=== PATIENT | female | born 1955 | race Caucasian/White ===

== ENCOUNTER 2020-03-28 13:58 | Outpatient (REF) | payer BC, SELFPAY | END 2020-03-28 13:59 | disposition home or self-care (01) | LOC: HO.LNP 13:58 | PROVIDERS: Visit Provider Hospitalist | DX: Z20.828 Contact with and (suspected) exposure to other viral communicable diseases (principal); R11.2 Nausea with vomiting, unspecified | CPT/HCPCS: 87635 ==

== ENCOUNTER 2020-05-12 17:07 | Emergency (ER) | payer BC, SELFPAY ==
[2020-05-12 17:21] VITALS: BP 172/78; PULSE 88; RESP 20; TEMP 37.1; O2SAT 96; BMI 33.0
--- NOTE | 2020-05-12 20:13 | XR_ITS ---
EXAMINATION: XR CHEST CLINICAL INFORMATION: Chest pain COMPARISON: CT from 06/17/2019. Radiograph 01/24/2019. TECHNIQUE: Frontal view of the chest was obtained. FINDINGS: The lungs are well expanded. Minimal bibasilar atelectasis. No consolidation. No edema or effusion. No pneumothorax. The cardiomediastinal silhouette is normal in size with a calcified aorta. XR/XR chest 1V IMPRESSION: No acute pulmonary finding.
--- NOTE | 2020-05-12 20:13 | ECG_ITS ---
Test Reason : CHEST TIGHTNESS Blood Pressure : / mmHG Vent. Rate : 092 BPM Atrial Rate : 092 BPM P-R Int : 166 ms QRS Dur : 074 ms QT Int : 374 ms P-R-T Axes : 103 007 016 degrees QTc Int : 462 ms Normal sinus rhythm Normal ECG No previous ECGs available Referred By: Ray Jalloh Electronically Signed By:GAB DANIELS MD
[2020-05-12 20:51] LABS: MANUAL DIFF FLAG NO
[2020-05-12 20:55] LABS: Basophils Absolute Auto 0.1 X10*3/uL (0.0-0.2); Basophils Percent Auto 0.4 % (0-2); Eosinophils Absolute Auto 0.3 X10*3/uL (0.0-0.4); Eosinophils Percent Auto 2.1 % (0-4); Hematocrit 48.2 % (37-47); Hemoglobin 16.3 g/dl (12.0-16.0); Imm Gran Abs Auto 0.08 X10*3/uL (0.00-0.03); Imm Gran Pct Auto 0.6 % (0.0-0.4); Lymphocytes Percent Auto 21.6 % (20-40); Mean Corpuscular HGB Conc 33.8 g/dl (31.0-35.0); Mean Corpuscular Hemoglobin 31.5 pg (27.0-33.0); Mean Corpuscular Volume 93.2 fL (80-98); Mean Platelet Volume 11.1 fL (9.4-12.3); Monocytes Absolute Auto 0.8 X10*3/uL (0.1-1.2); Monocytes Percent Auto 5.4 % (2-11); Neutrophils Absolute Auto 9.7 X10*3/uL (2.0-8.3); Neutrophils Percent Auto 69.9 % (45-73); Platelet Count 236 X10*3/uL (160-400); Red Blood Count 5.17 X10*6/uL (4.20-5.50); Red Cell Distribution Width 13.9 % (11.0-16.0); White Blood Count 13.9 X10*3/uL (4.8-10.8)
--- NOTE | 2020-05-12 21:07 | ED_ITS ---
HPI - Chest Pain General Chief Complaint: General Medical Stated Complaint: chest pressure Time Seen by Provider: 05/12/20 20:12 Source: patient Mode of arrival: ambulatory Limitations: no limitations History of Present Illness HPI narrative: Patient complaining of right-sided chest pain when she takes a deep breath mostly localized in the front part no cough no shortness of breath no left-sided chest pain no radiation of pain no history of any injury. Pain is going on for last few days get worse on palpation and taking a deep breath MD complaint: chest pain Onset (ago): day(s) Timing of current episode: episodic Prior episodes: No Onset: during rest Pain location: right chest Severity: mild Quality: sharp Exacerbating factors: inspiration and movement Related Data Home Medications Medication Instructions Recorded Confirmed albuterol sulfate 90 mcg/actuation 2 puff INHALATION Q6H PRN 03/28/20 04/08/20 aerosol inhaler hydroxyzine HCl 25 mg tablet [id number] mg PO BEDTIME PRN 03/28/20 04/08/20 ibuprofen 600 mg tablet 600 mg PO TID PRN 04/20/20 lorazepam 1 mg tablet 1 mg PO DAILY PRN 04/20/20 lorazepam 1 mg tablet 1 mg PO DAILY PRN 04/20/20 quetiapine 25 mg tablet 25 mg PO BEDTIME 04/20/20 Previous Rx's Medication Instructions Recorded ondansetron HCl 8 mg tablet 8 mg PO Q8H PRN #20 tab 03/28/20 doxycycline hyclate 100 mg tablet 100 mg PO BID #14 tab 04/08/20 ibuprofen 600 mg tablet 600 mg PO TID PRN 15 Days #45 tab 04/20/20 lorazepam 1 mg tablet 1 mg PO DAILY PRN 30 Days #30 tab 04/20/20 quetiapine 25 mg tablet 25 mg PO BEDTIME 30 Days #30 tab 04/20/20 atorvastatin 40 mg tablet 40 mg PO DAILY #30 tab 05/27/20 Allergies Allergy/AdvReac Type Severity Reaction Status Date / Time shellfish derived Allergy Severe ANAPHYLAXIS Unverified 04/08/20 16:39 [SHELLFISH DERIVED] cyclobenzaprine Allergy Intermediate LETHARGY Unverified 04/08/20 16:39 [From FLEXERIL] bupropion [From Wellbutrin] Allergy Mild HIVES Unverified 04/08/20 16:39 amoxicillin [Augmentin] Allergy Unknown unknown Verified 04/08/20 16:39 clavulanic acid [Augmentin] Allergy Unknown unknown Verified 04/08/20 16:39 quetiapine [Seroquel] Allergy Unknown hypoglycemi Verified 04/08/20 16:39 a erythromycin base AdvReac Mild VOMITING Unverified 04/08/20 16:39 [Erythromycin Base] pantoprazole [From Protonix] AdvReac Mild TIGHTING Unverified 04/08/20 16:39 OF MUSCLES Augmentin Allergy Unknown GI side Uncoded 04/08/20 16:39 effect Seroquel Allergy Unknown hypoglycemi Uncoded 04/08/20 16:39 a Wellbutrin Allergy Unknown unknown Uncoded 04/08/20 16:39 From Augmentin AdvReac Mild VOMITING Uncoded 04/08/20 16:39 Review of Systems Review of Systems: Constitutional : No Weight loss, No Fever, No Chills ENT/Mouth : No sore throat, No Rhinorrhea Eyes: No Eye Pain, No Swelling Cardiovascular : + Chest Pain, no palpitations Respiratory : No Cough, No Sputum, no shortness of breath Gastrointestinal : no Nausea, No Vomiting, No Diarrhea, No abdominal Pain, no black stools Genitourinary : No Dysuria, No Urinary Frequency Musculoskeletal : No joint pain, No Myalgias, No Joint Swelling Skin : No Skin Lesions, No rash Neuro : No Weakness, No Numbness, No Dizziness, No Headache Psych : No Anxiety/Panic, No Depression Heme/Lymph: No Bruising, No Lymphadenopathy Endocrine : No Polyuria, No Polydipsia All other systems reviewed and are negative Physical Exam Vital Signs: Vital Signs: Last Vital Signs Temp 98.2 F 05/12/20 21:32 Pulse 94 05/12/20 21:32 Resp 18 05/12/20 21:32 BP 147/7 H 05/12/20 21:32 Pulse Ox 98 05/12/20 21:32 Body Mass Index 33.0 Appearance: Alert. Oriented X3. No acute distress. Eyes: Pupils equal, round and reactive to light. ENT: Pharynx normal. Neck: Normal inspection. Neck supple. CVS: Normal heart rate and rhythm. Pulses normal. Right chest wall tenderness in 2nd intercostal space++ Respiratory: No respiratory distress. Breath sounds normal. Abdomen: Soft and nontender. Bowel sounds are present, no mass palpable, no CVA tenderness Skin: Skin warm and dry. Normal skin color. Normal skin turgor. Extremities: No lower extremity edema. Neuro: Oriented X 3. No motor deficit. No sensory deficit. MDM - Chest Pain MDM Narrative Medical decision making narrative: Patient has atypical chest pain on the right side pain elicited on palpation EKGs normal high sensitive troponin is also negative pain is going on for few days patient advised to follow with PCP and take anti-inflammatory pain medication Medical Records Data Attestation: I reviewed the patient's medical records. Lab Data Attestation: I reviewed the patient's lab results. Result diagrams: 05/12/20 20:45 05/12/20 20:45 Labs: Lab Results 05/12/20 05/12/20 05/12/20 Range/Units 20:45 20:45 20:45 WBC 13.9 H (4.8-10.8) X10*3/uL RBC 5.17 (4.20-5.50) X10*6/uL Hgb 16.3 H (12.0-16.0) g/dl Hct 48.2 H (37-47) % MCV 93.2 (80-98) fL MCH 31.5 (27.0-33.0) pg MCHC 33.8 (31.0-35.0) g/dl RDW 13.9 (11.0-16.0) % Plt Count 236 (160-400) X10*3/uL MPV 11.1 (9.4-12.3) fL Immature Gran % (Auto) 0.6 H (0.0-0.4) % Neut % (Auto) 69.9 (45-73) % Lymph % (Auto) 21.6 (20-40) % [place] % (Auto) 5.4 (2-11) % Eos % (Auto) 2.1 (0-4) % Baso % (Auto) 0.4 (0-2) % Lymph # (Auto) 3.0 (1.2-4.9) X10*3/uL [place] # (Auto) 0.8 (0.1-1.2) X10*3/uL Eos # (Auto) 0.3 (0.0-0.4) X10*3/uL Baso # (Auto) 0.1 (0.0-0.2) X10*3/uL Abs Immat Gran (auto) 0.08 H (0.00-0.03) X10*3/uL Absolute Neuts (auto) 9.7 H (2.0-8.3) X10*3/uL Absolute Nucleated RBC 0.000 (0.0-0.012) X10*3/uL Nucleated RBC % (auto) 0.0 (0.0-0.2) /100WBC Hold Blue Top SEE NOTE Sodium 139 (135-145) mmol/L Potassium 4.3 (3.3-5.1) mmol/l Chloride 106 (96-108) mmol/L Carbon Dioxide 23 (22-29) mmol/L Anion Gap 14 (12-20) BUN 24 H (9-16) mg/dL Creatinine 0.77 (0.5-1.4) mg/dL Estim Creat Clear Calc 69.4 Estimated GFR > 60 Random Glucose 84 (60-115) mg/dL Calcium 9.7 (8.4-10.2) mg/dL Troponin I High Sens (<3.5-17.0) ng/L 05/12/20 Range/Units 20:45 WBC (4.8-10.8) X10*3/uL RBC (4.20-5.50) X10*6/uL Hgb (12.0-16.0) g/dl Hct (37-47) % MCV (80-98) fL MCH (27.0-33.0) pg MCHC (31.0-35.0) g/dl RDW (11.0-16.0) % Plt Count (160-400) X10*3/uL MPV (9.4-12.3) fL Immature Gran % (Auto) (0.0-0.4) % Neut % (Auto) (45-73) % Lymph % (Auto) (20-40) % [place] % (Auto) (2-11) % Eos % (Auto) (0-4) % Baso % (Auto) (0-2) % Lymph # (Auto) (1.2-4.9) X10*3/uL [place] # (Auto) (0.1-1.2) X10*3/uL Eos # (Auto) (0.0-0.4) X10*3/uL Baso # (Auto) (0.0-0.2) X10*3/uL Abs Immat Gran (auto) (0.00-0.03) X10*3/uL Absolute Neuts (auto) (2.0-8.3) X10*3/uL Absolute Nucleated RBC (0.0-0.012) X10*3/uL Nucleated RBC % (auto) (0.0-0.2) /100WBC Hold Blue Top Sodium (135-145) mmol/L Potassium (3.3-5.1) mmol/l Chloride (96-108) mmol/L Carbon Dioxide (22-29) mmol/L Anion Gap (12-20) BUN (9-16) mg/dL Creatinine (0.5-1.4) mg/dL Estim Creat Clear Calc Estimated GFR Random Glucose (60-115) mg/dL Calcium (8.4-10.2) mg/dL Troponin I High Sens < 3.5 (<3.5-17.0) ng/L ECG Data ECG #1: Attestation: I personally reviewed and interpreted this ECG as follows: Interpretation: Normal sinus rhythm heart rate 92 normal axis normal intervals no acute ST wave changes impression normal EKG Discharge Plan Discharge Clinical Impression: Acute costochondritis Patient Disposition: Home, Self-Care Instructions: Costochondritis (ED) Additional Instructions: Continue to take ibuprofen as advised. Follow-up with primary care doctor if not better Prescriptions: No Action lorazepam 1 mg tablet 1 mg PO DAILY PRNRF: 0 quetiapine 25 mg tablet 25 mg PO BEDTIME RF: 0 ibuprofen 600 mg tablet 600 mg PO TID PRN (Reason: pain) RF: 0 ibuprofen 600 mg tablet 600 mg PO TID PRN (Reason: pain) 15 Days Qty: 45 RF: 2 quetiapine 25 mg tablet 25 mg PO BEDTIME 30 Days Qty: 30 RF: 1 lorazepam 1 mg tablet 1 mg PO DAILY PRN (Reason: anxiety) 30 Days Qty: 30 RF: 1 lorazepam 1 mg tablet 1 mg PO DAILY PRNRF: 0 atorvastatin 40 mg tablet 40 mg PO DAILY Qty: 30 RF: 4 hydroxyzine HCl 25 mg tablet [id number] mg PO BEDTIME PRNRF: 0 albuterol sulfate 90 mcg/actuation HFA aerosol inhaler 2 puff inhalation Q6H PRNRF: 0 ondansetron HCl 8 mg tablet 8 mg PO Q8H PRN (Reason: nausea and vomiting) Qty: 20 RF: 0 doxycycline hyclate 100 mg tablet 100 mg PO BID Qty: 14 RF: 0 Interventions: ED Discharge Assessment Last Done: 05/12/20 22:59 Discharge Date/Time: 05/12/20 23:00
[2020-05-12 21:12] LABS: Anion Gap 14 (12-20); Blood Urea Nitrogen 24 mg/dL (9-16); Calcium 9.7 mg/dL (8.4-10.2); Carbon Dioxide 23 mmol/L (22-29); Chloride 106 mmol/L (96-108); Creatinine Clr Calc Pharmacy 69.4; Estimated Glomerular Filt Rate > 60; Glucose Random 84 mg/dL (60-115); Potassium 4.3 mmol/l (3.3-5.1); Sodium 139 mmol/L (135-145)
[2020-05-12 21:18] LABS: Troponin-I High Sensitivity < 3.5 ng/L (<3.5-17.0)
[2020-05-12 21:32] VITALS: BP 147/7; PULSE 94; RESP 18; TEMP 36.8; O2SAT 98
[2020-05-12] MEDS: Ketorolac Tromethamine 30 MG/ML VIAL IVPUSH (22:10)
== END 2020-05-12 23:00 | disposition home or self-care (01) ==
PROVIDERS: Emergency Provider Internal Medicine; PCP Physician Assistant
DX: M94.0 Chondrocostal junction syndrome [Tietze] (principal)
CPT/HCPCS: 36415; 71045; 80048; 84484; 85025; 93005; 96374; 99284; J1885

== ENCOUNTER 2020-06-14 14:23 | Outpatient (REF) | payer BC, SELFPAY ==
--- NOTE | 2020-06-14 14:30 | MM_ITS ---
EXAMINATION: MM DIAGNOSTIC DIGITAL BREAST TOMOSYNTHESIS, BILATERAL US DIAGNOSTIC ULTRASOUND BREAST, RIGHT CLINICAL INFORMATION: Areas of palpable concern noted by patient medial and lateral breast and chest wall, palpable fullness and intermittent pain. The lifetime risk of breast cancer based on the Tyrer-Cuzick Model is 3%. COMPARISON: Mammography: 02/21/2019, 07/27/2015, 05/16/2013 TECHNIQUE: Digital breast tomosynthesis is performed in both the craniocaudal and mediolateral oblique views along with computer-aided detection (CAD). Synthesized 2D images are generated from the tomosynthesis. Ultrasound right breast is targeted to the areas of patient concern. Grayscale imaging and color Doppler are performed without and with harmonics. Patient is able to point to the areas of concern at time of imaging. FINDINGS: There are scattered areas of fibroglandular density (ACR BI-RADS breast composition Category b). Parenchymal pattern is similar to prior studies. There is no developing density or interval mass or architectural abnormality. There are scattered stable parenchymal asymmetries and small nodularity on tomography and similar to prior studies. No abnormal calcifications. The axilla and skin contours are unremarkable. There is no skin thickening or coarsening of the Kenneth's ligaments. Targeted right breast ultrasound shows no cystic or solid mass, architectural abnormality, or focal duct ectasia. No skin thickening or edema tracking in soft tissue planes. Low right axillary tail nodes show normal kelly architecture and color flow. Results are discussed with the patient at time of visit. MM/MM tomosynthesis diagnostic BI IMPRESSION: No mammographic evidence of malignancy or inflammatory changes. Unremarkable targeted right breast ultrasound. ASSESSMENT: BI-RADS 2: Benign RECOMMENDATION: 1. Patient should be managed based on the clinical impression. If clinically indicated, further evaluation may be considered with surgical consult. Decision to proceed with biopsy should be based on clinical grounds and degree of clinical concern. 2. Otherwise, routine annual screening mammography. This patient's information was entered into a reminder system with a target due date for their next mammogram.
== END 2020-06-14 14:24 | disposition home or self-care (01) ==
LOC: HO.MAMMO 14:23
PROVIDERS: PCP Physician Assistant; Visit Provider Physician Assistant
DX: N63.10 Unspecified lump in the right breast, unspecified quadrant (principal); N64.4 Mastodynia
CPT/HCPCS: 76642; 77062; 77066

== ENCOUNTER 2020-06-21 16:14 | Outpatient (REF) | payer BC, SELFPAY ==
--- NOTE | 2020-06-21 16:17 | CT_ITS ---
EXAMINATION: CT CHEST SCREENING CLINICAL INFORMATION: Solitary pulmonary nodule. COMPARISON: 06/17/2019 TECHNIQUE: Multidetector volumetric CT imaging of the chest is performed without contrast using low dose technique. Additional 2D coronal and sagittal reformatted images and axial 3D maximum intensity projection (MIP) images are generated on the CT workstation. This CT examination was performed using dose optimization techniques as appropriate, variously including the following: *Automated exposure control *Adjustment of mA and/or kV according to patient size (this includes techniques or standardized protocols for targeted exams where dose is matched to indication/reason for exam; i.e. extremities or head) *Use of iterative reconstruction technique DLP: 55 mGy-cm. FINDINGS: LUNGS: Central airways are patent. There are are regions of discoid scarring or atelectasis within the right middle lobe and lingula. No confluent parenchymal disease is appreciated. No significant bronchial wall thickening. No bronchiectasis. There are a few scattered sub-4 mm densities present. MEDIASTINUM: Heart normal size. Coronary artery calcifications seen. No pericardial effusion. No thoracic aortic aneurysm. No mediastinal or hilar lymphadenopathy. PLEURA: There is no pleural effusion. No pleural mass or thickening. AXILLA: No lymphadenopathy. UPPER ABDOMEN: Unremarkable. OSSEOUS STRUCTURES: No suspicious destructive bony lesion. CT/CT lung screening IMPRESSION: No 4 mm or greater in dimension lung nodules appreciated. ASSESSMENT: Lung-RADS category 1: Negative RECOMMENDATION: Routine annual low-dose CT screening in 12 months.
== END 2020-06-21 16:15 | disposition home or self-care (01) ==
LOC: HO.RESP 16:14
PROVIDERS: PCP Physician Assistant; Visit Provider Physician Assistant Medical
DX: Z12.2 Encounter for screening for malignant neoplasm of respiratory organs (principal); F17.210 Nicotine dependence, cigarettes, uncomplicated
CPT/HCPCS: 71271

== ENCOUNTER 2020-10-07 10:30 | Emergency (ER) | payer BC, SELFPAY ==
--- NOTE | ~2020-10-07 | XR_ITS ---
EXAMINATION: XR CHEST CLINICAL INFORMATION: Dyspnea COMPARISON: Previous chest x-ray May [address] June 2020 TECHNIQUE: Frontal view of the chest was obtained. FINDINGS: The cardiac and mediastinal contours are stable. Is minimal bilateral linear scarring or subsegmental atelectasis similar to previous exam. The lungs are otherwise clear. There is no pleural effusion or pneumothorax. Bony structures are unremarkable. XR/XR chest 1V IMPRESSION: No evidence for acute disease in the chest.
[2020-10-07 10:46] VITALS: BP 130/90; BP 164/94; PULSE 112; PULSE 113; RESP 22; TEMP 36.9; O2SAT 93; O2SAT 94; BMI 33.2
[2020-10-07 10:52] VITALS: BP 164/94; PULSE 112; RESP 22; TEMP 36.9; O2SAT 94
--- NOTE | 2020-10-07 11:06 | ECG_ITS ---
Test Reason : DYSPNEA Blood Pressure : / mmHG Vent. Rate : 104 BPM Atrial Rate : 104 BPM P-R Int : 168 ms QRS Dur : 072 ms QT Int : 360 ms P-R-T Axes : 019 021 011 degrees QTc Int : 473 ms Sinus tachycardia Otherwise normal ECG When compared with ECG of 12-MAY-2020 17:54, No significant change was found Referred By: Siri Rowan Electronically Signed By:GAB DANIELS MD
[2020-10-07 11:22] LABS: MANUAL DIFF FLAG NO
[2020-10-07 11:25] LABS: Basophils Percent Auto 0.3 % (0-2); Eosinophils Absolute Auto 0.3 X10*3/uL (0.0-0.4); Hematocrit 48.1 % (37-47); Hemoglobin 15.9 g/dl (12.0-16.0); Imm Gran Abs Auto 0.07 X10*3/uL (0.00-0.03); Imm Gran Pct Auto 0.5 % (0.0-0.4); Lymphocytes Absolute Auto 2.5 X10*3/uL (1.2-4.9); Lymphocytes Percent Auto 17.7 % (20-40); Mean Corpuscular HGB Conc 33.1 g/dl (31.0-35.0); Mean Corpuscular Hemoglobin 30.8 pg (27.0-33.0); Mean Corpuscular Volume 93.2 fL (80-98); Mean Platelet Volume 10.5 fL (9.4-12.3); Monocytes Absolute Auto 0.8 X10*3/uL (0.1-1.2); Monocytes Percent Auto 5.6 % (2-11); Neutrophils Absolute Auto 10.4 X10*3/uL (2.0-8.3); Neutrophils Percent Auto 73.9 % (45-73); Platelet Count 250 X10*3/uL (160-400); Red Blood Count 5.16 X10*6/uL (4.20-5.50); Red Cell Distribution Width 13.2 % (11.0-16.0)
[2020-10-07 11:51] LABS: Anion Gap 15 (12-20); Blood Urea Nitrogen 19 mg/dL (9-16); Calcium 9.6 mg/dL (8.4-10.2); Carbon Dioxide 20 mmol/L (22-29); Chloride 105 mmol/L (96-108); Creatinine Clr Calc Pharmacy 73.4; Estimated Glomerular Filt Rate > 60; Glucose Random 271 mg/dL (60-115); Potassium 4.1 mmol/L (3.3-5.1); Sodium 136 mmol/L (135-145)
[2020-10-07 11:59] LABS: B Type Natriuretic Peptide 17 pg/mL (<100); Troponin-I High Sensitivity < 3.5 ng/L (<3.5-17.0)
[2020-10-07 12:08] LABS: INTERNATIONAL NORM RATIO 0.9 (0.9-1.1); Prothrombin Time 11.1 SEC (10.8-13.0)
[2020-10-07 12:11] LABS: D Dimer < 200 NG/ML; Partial Thromboplastin Time 34.6 SEC (24.1-38.0)
[2020-10-07 12:51] VITALS: BP 136/76; PULSE 98; RESP 17; O2SAT 97
--- NOTE | 2020-10-07 13:27 | ED_ITS ---
HPI - SOB/Dyspnea General Chief Complaint: Dyspnea Stated Complaint: sob, n/v Time Seen by Provider: 10/07/20 10:42 Source: patient Mode of arrival: ambulatory Limitations: no limitations History of Present Illness HPI Narrative: 65-year-old female with a past medical history of hyperlipidemia, COPD, right middle lobe pulmonary nodule, insomnia and anxiety disorder who is a daily smoker presenting to the ED with complaints of sudden onset of shortness of breath when she was going up the stairs to work she also developed some diaphoresis. She reports that she rested in her symptoms resolved then she had some breakfast and felt nauseated and vomited once. Therefore at that time EMS was called from her job and they gave her 324 mg of aspirin she reports her symptoms are already resolved at that point and brought here to the emergency department. Patient reports that she wants to leave at this time. She denies any drug usage. Denies any other symptoms complaints or concerns at this time. I was able to convince her to get some blood work, EKG and a chest x-ray. MD elicited complaint: shortness of breath Pertinent past history: COPD Onset (ago): hour(s) (Started at 07:00 this morning prior to arrival) Context: occurred during exertion Timing: now resolved Severity: mild Exacerbating factors: nothing Relieving factors: nothing Known history of: COPD Associated symptoms: palpitations Treatment prior to arrival: other (324 mg of aspirin) Related Data Home oxygen amount: none Previous Rx's Medication Instructions Recorded quetiapine 25 mg tablet 25 mg PO BEDTIME 30 Days #30 tab 04/20/20 albuterol sulfate 90 mcg/actuation 2 puff INHALATION Q6H PRN 30 Days 06/13/20 aerosol inhaler #8.5 g fluticasone 55 mcg-salmeterol 14 1 inh INHALATION BID 30 Days #1 ea 06/23/20 mcg/actuation breath activated powder quetiapine 100 mg tablet 100 mg PO BEDTIME 30 Days #30 tab 07/31/20 ibuprofen 600 mg tablet 600 mg PO TID PRN #45 tab 08/16/20 atorvastatin 40 mg tablet 40 mg PO DAILY #30 tab 08/28/20 ciprofloxacin 0.2 %-hydrocortisone 5 drp OTIC (EARS) BID 7 Days #10 ml 10/03/20 1 % ear drops,suspension lorazepam 1 mg tablet 1 mg PO DAILY PRN 30 Days #30 tab 10/03/20 Allergies Allergy/AdvReac Type Severity Reaction Status Date / Time shellfish derived Allergy Severe ANAPHYLAXIS Verified 10/03/20 17:08 [SHELLFISH DERIVED] cyclobenzaprine Allergy Intermediate LETHARGY Verified 10/03/20 17:08 [From FLEXERIL] bupropion [From Wellbutrin] Allergy Mild HIVES Verified 10/03/20 17:08 amoxicillin [Augmentin] Allergy Unknown unknown Verified 10/03/20 17:08 clavulanic acid [Augmentin] Allergy Unknown unknown Verified 10/03/20 17:08 quetiapine [Seroquel] Allergy Unknown hypoglycemi Verified 10/03/20 17:08 a erythromycin base AdvReac Mild VOMITING Verified 10/03/20 17:08 [Erythromycin Base] pantoprazole [From Protonix] AdvReac Mild TIGHTING Verified 10/03/20 17:08 OF MUSCLES Review of Systems Review of Systems: Constitutional : No Weight loss, No Fever, No Chills, No Night Sweats, No Fatigue, No Malaise ENT/Mouth : No Hearing loss, No Ear Pain, No Nasal Congestion, No Sinus Pain, No Hoarseness, No sore throat, No Rhinorrhea, No Swallowing Difficulty Eyes: No Eye Pain, No Swelling, No Redness, No Foreign Body, No Discharge, No Vision Changes Cardiovascular : No SOB, no Dyspnea on Exertion, No Orthopnea, No Edema, No extremity swelling, No Palpitations Respiratory : No Cough, No Sputum, No Wheezing, No Dyspnea Gastrointestinal : No Nausea, No Vomiting, No Diarrhea, No abdominal Pain, No Hematochezia, No Melena Genitourinary : No irregular bleeding, No Dysuria, No Urinary Frequency, No Hematuria, No Urinary Incontinence, No Urgency, No Flank Pain, No Urinary Flow Changes, No Hesitancy Musculoskeletal : No joint pain, No Myalgias, No Joint Swelling Skin : No Skin Lesions, No rash Neuro : No Weakness, No Numbness, No Paresthesias, No Loss of Consciousness, No Dizziness, No Headache Psych : No Anxiety/Panic, No Depression, No SI/HI/AH/VH Heme/Lymph: No Bruising, No Bleeding,No Lymphadenopathy Endocrine : No Polyuria, No Polydipsia, No Temperature Intolerance Yes all other systems are reviewed and are negative [facility] Past Medical History Attestation statement: The following information was validated with the patient. Medical History Left otitis externa Surgical History History of appendectomy History of left knee surgery History of nasal surgery History of surgery History of total abdominal hysterectomy and bilateral salpingo-oophorectomy Family History Family History Father Heart disease Mother Diabetes Daughter No problems noted. Son No problems noted. Social History Social History Alcohol intake: never Smoking Status: Former smoker Smoked in Last 30 Days: No Use of substances other than those prescribed or required for medical reasons: No Advance Directives: Yes Advance Directives Information Provided: Yes Advance Directives on File: No Physical Exam Vital Signs: Vital Signs: Last Vital Signs Temp 98.5 F 10/07/20 10:52 Pulse 98 10/07/20 12:51 Resp 17 10/07/20 12:51 BP 136/76 10/07/20 12:51 Pulse Ox 97 10/07/20 12:51 Body Mass Index 33.2 vital signs have been reviewed as normal and appeared to be correct. Blood pressure hypertensive at 164/94. Heart rate tachycardic at 112 Respiration rate tachypneic. Temperature normal. Oxygen saturation normal. Appearance: Alert. Oriented X3. No acute distress. Head: Normal external exam. Normocephalic. Eyes: PERRLA. EOMI. Conjunctiva and sclera normal. Eyelids normal. ENT: Pharynx normal. Uvula midline. Moist mucous membranes. No trismus noted. No drooling noted. No muffled voice noted. Neck: Normal inspection. Neck supple. FROM. No adenopathy. No meningeal signs. CVS: Normal heart rate and rhythm. Heart sound normal. No murmurs noted. Pulses normal throughout. Respiratory: No respiratory distress. Painless inspiration. Breath sounds normal. No wheezes/rales/rhonchi noted. Chest nontender. No accessory muscle usage noted or decreased air movement noted. Abdomen: Soft and nontender. Nondistended. No guarding. No rigidity. Bowel sounds normal in all 4 quadrants. No distention noted. No organomegaly noted. No visible injury noted. No rebound tenderness. Negative Rovsing sign. Negative obturator's sign. Negative psoas sign. Negative Davis sign. Back: No CVA tenderness. Full range of motion noted. Skin: Skin warm and dry. Normal skin color. Normal skin turgor. No bessie hes/lesions/lacerations noted. Extremities: No lower extremity edema noted. No calf tenderness noted. Extremities exhibit normal range of motion. Extremities nontender. Neuro: Oriented X 3. No motor deficit. No sensory deficit. Reflexes normal. Normal steady gait. Course Course Course Narrative: 65-year-old female with a past medical history of hyperlipidemia and COPD presenting to the ED after she had a sudden episode of shortness of breath with associated diaphoresis and nausea/vomiting that started approximately at 07:00 while she was at work. Denied any other symptoms complaints or concerns at this time. She was brought in by EMS and given 324 mg of aspirin that she reports did not provide any symptomatic relief because her symptoms are already resolved. She did not want to be here she wanted to leave against medical advice initially although I was able to convince her to get some blood work and a chest x-ray and an EKG. - patient has an elevated white blood cell count at 14,000. BUN 19. Random glucose 271 and patient denies a history of diabetes. Therefore I added an A1c level. Troponin was negative. - EKG was sinus tachycardia ventricular rate of 104 with normal [place] interval normal QRS duration normal QT/QTC interval. No acute ischemic changes are noted. - chest x-ray within normal limits no acute processes are noted. - I tried to convince the patient to have a repeat troponin even though her 1st troponin was negative due to her symptoms started at 07:00 and I wanted a troponin 6 hours after her symptoms started although patient adamantly refused and she is alert and oriented x3 she can make her own medical decisions I explained to her that she can stay paralyzed/have a heart attack or stroke or she can and she still wanted to leave against medical advice. I instructed her that she needs to follow up with her primary care provider regarding the symptoms she had today and her elevated glucose level for possible diabetes she understood this and reported that she will follow-up with her primary care provider as soon as he is back from paternity leave. Therefore at this time patient will be leaving against medical advice. MDM - SOB/Dyspnea Medical Records Attestation: I reviewed the patient's medical records. Lab Data Attestation: I reviewed the patient's lab results. Result diagrams: 10/07/20 11:17 10/07/20 11:17 Labs: Lab Results 10/07/20 10/07/20 10/07/20 Range/Units 11:17 11:17 11:17 WBC 14.0 H (4.8-10.8) X10*3/uL RBC 5.16 (4.20-5.50) X10*6/uL Hgb 15.9 (12.0-16.0) g/dl Hct 48.1 H (37-47) % MCV 93.2 (80-98) fL MCH 30.8 (27.0-33.0) pg MCHC 33.1 (31.0-35.0) g/dl RDW 13.2 (11.0-16.0) % Plt Count 250 (160-400) X10*3/uL MPV 10.5 (9.4-12.3) fL Immature Gran % (Auto) 0.5 H (0.0-0.4) % Neut % (Auto) 73.9 H (45-73) % Lymph % (Auto) 17.7 L (20-40) % [place] % (Auto) 5.6 (2-11) % Eos % (Auto) 2.0 (0-4) % Baso % (Auto) 0.3 (0-2) % Lymph # (Auto) 2.5 (1.2-4.9) X10*3/uL [place] # (Auto) 0.8 (0.1-1.2) X10*3/uL Eos # (Auto) 0.3 (0.0-0.4) X10*3/uL Baso # (Auto) 0.0 (0.0-0.2) X10*3/uL Abs Immat Gran (auto) 0.07 H (0.00-0.03) X10*3/uL Absolute Neuts (auto) 10.4 H (2.0-8.3) X10*3/uL Absolute Nucleated RBC 0.000 (0.0-0.012) X10*3/uL Nucleated RBC % (auto) 0.0 (0.0-0.2) /100WBC PT (10.8-13.0) SEC INR (0.9-1.1) APTT (24.1-38.0) SEC D-Dimer NG/ML Hold Blue Top SEE NOTE Sodium 136 (135-145) mmol/L Potassium 4.1 (3.3-5.1) mmol/L Chloride 105 (96-108) mmol/L Carbon Dioxide 20 L (22-29) mmol/L Anion Gap 15 (12-20) BUN 19 H (9-16) mg/dL Creatinine 0.73 (0.5-1.4) mg/dL Estim Creat Clear Calc 73.4 Estimated GFR > 60 Random Glucose 271 H D (60-115) mg/dL Calcium 9.6 (8.4-10.2) mg/dL Troponin I High Sens (<3.5-17.0) ng/L B-Natriuretic Peptide (<100) pg/mL 10/07/20 10/07/20 Range/Units 11:17 11:56 WBC (4.8-10.8) X10*3/uL RBC (4.20-5.50) X10*6/uL Hgb (12.0-16.0) g/dl Hct (37-47) % MCV (80-98) fL MCH (27.0-33.0) pg MCHC (31.0-35.0) g/dl RDW (11.0-16.0) % Plt Count (160-400) X10*3/uL MPV (9.4-12.3) fL Immature Gran % (Auto) (0.0-0.4) % Neut % (Auto) (45-73) % Lymph % (Auto) (20-40) % [place] % (Auto) (2-11) % Eos % (Auto) (0-4) % Baso % (Auto) (0-2) % Lymph # (Auto) (1.2-4.9) X10*3/uL [place] # (Auto) (0.1-1.2) X10*3/uL Eos # (Auto) (0.0-0.4) X10*3/uL Baso # (Auto) (0.0-0.2) X10*3/uL Abs Immat Gran (auto) (0.00-0.03) X10*3/uL Absolute Neuts (auto) (2.0-8.3) X10*3/uL Absolute Nucleated RBC (0.0-0.012) X10*3/uL Nucleated RBC % (auto) (0.0-0.2) /100WBC PT 11.1 (10.8-13.0) SEC INR 0.9 (0.9-1.1) APTT 34.6 (24.1-38.0) SEC D-Dimer < 200 NG/ML Hold Blue Top Sodium (135-145) mmol/L Potassium (3.3-5.1) mmol/L Chloride (96-108) mmol/L Carbon Dioxide (22-29) mmol/L Anion Gap (12-20) BUN (9-16) mg/dL Creatinine (0.5-1.4) mg/dL Estim Creat Clear Calc Estimated GFR Random Glucose (60-115) mg/dL Calcium (8.4-10.2) mg/dL Troponin I High Sens < 3.5 (<3.5-17.0) ng/L B-Natriuretic Peptide 17 (<100) pg/mL Imaging Data Chest x-ray: Attestation: I personally reviewed and interpreted this imaging study as follows: Radiologist's impression: FINDINGS: The cardiac and mediastinal contours are stable. Is minimal bilateral linear scarring or subsegmental atelectasis similar to previous exam. The lungs are otherwise clear. There is no pleural effusion or pneumothorax. Bony structures are unremarkable. XR/XR chest 1V IMPRESSION: No evidence for acute disease in the chest. ECG Data Attestation: I personally reviewed and interpreted this ECG as follows: ECG interpretation date: 10/07/20 ECG interpretation time: 11:24 Interpretation: Sinus tachycardia with ventricular rate of 104 with a normal [place] interval normal QRS duration normal QT/QTC interval. No acute ischemic changes are noted. Similar compared to prior EKG on 05/12/2020. Critical Care Time Critical Care Time Critical Care Time: Yes Total Critical Care Time: 60 Attestation: I personally attest to this time spent taking care of the patient Discharge Plan Discharge Clinical Impression: Shortness of breath, Acute hyperglycemia Patient Disposition: Left Against Medical Advice Instructions: Nondiabetic Hyperglycemia (ED), Diabetic Hyperglycemia (ED) Additional Instructions: You had an elevated glucose level today at 271. You could have diabetes although you are refusing any additional blood work. I also recommended a repeat troponin 6 hours after your symptoms started which would be at 01:30 and also refused therefore at this time I am recommending that you follow-up with her primary care provider as soon as possible and to return if any new or worsening symptoms I would love to do additional blood work on You although you refusing therefore follow-up with her primary care provider. Prescriptions: No Action quetiapine 25 mg tablet 25 mg PO BEDTIME 30 Days Qty: 30 RF: 1 fluticasone propion-salmeterol 55-14 mcg/actuation aerosol powdr breath activated 1 inh inhalation BID 30 Days Qty: 1 RF: 0 quetiapine 100 mg tablet 100 mg PO BEDTIME 30 Days Qty: 30 RF: 3 ibuprofen 600 mg tablet 600 mg PO TID PRN (Reason: for pain) Qty: 45 RF: 2 atorvastatin 40 mg tablet 40 mg PO DAILY Qty: 30 RF: 4 albuterol sulfate 90 mcg/actuation HFA aerosol inhaler 2 puff inhalation Q6H PRN (Reason: shortness of breath or wheezing) 30 Days Qty: 8.5 RF: 0 lorazepam 1 mg tablet 1 mg PO DAILY PRN (Reason: anxiety) 30 Days Qty: 30 RF: 0 Cipro HC 0.2-1 % drops,suspension 5 drp otic (ears) BID 7 Days Qty: 10 RF: 0 Referrals: Joni Sullivan PA-C [Primary Care Provider] - 2 days Stand Alone Forms: Work/School Release Interventions: ED Discharge Assessment Last Done: 10/07/20 13:40 Discharge Date/Time: 10/07/20 13:45 Print Language: Armenian
--- NOTE | 2020-10-07 13:44 | PC.NURSE ---
pt has refused any further lab work, states she is not willing to have her second troponin drawn and not willing to have an HGBa1C. she states she wants to leave. PA to bedside, pt leaving AMA. She is ambulatory in no distress with steady gait.
[2020-10-07 14:21] LABS: Estimated Average Glucose 111 mg/dL; Hemoglobin A1c % 5.5 %
== END 2020-10-07 13:46 | disposition left against medical advice (07) ==
PROVIDERS: Physician Assistant Medical; Emergency Provider Emergency Medicine; PCP Physician Assistant
DX: R06.02 Shortness of breath (principal); R73.9 Hyperglycemia, unspecified; I10 Essential (primary) hypertension; J44.9 Chronic obstructive pulmonary disease, unspecified; F17.200 Nicotine dependence, unspecified, uncomplicated; Z79.02 Long term (current) use of antithrombotics/antiplatelets; Z79.899 Other long term (current) drug therapy
CPT/HCPCS: 36415; 71045; 80048; 83036; 83880; 84484; 85025; 85379; 85610; 85730; 93005; 99285; 99291

== ENCOUNTER 2020-10-11 09:39 | Outpatient (REF) | payer BC, SELFPAY ==
[2020-10-11 10:29] LABS: Estimated Average Glucose 108 mg/dL; Hemoglobin A1C 151.1461 umol/L; Hemoglobin A1c % 5.4 %
== END 2020-10-11 09:40 | disposition home or self-care (01) ==
LOC: HO.LAB 09:39
PROVIDERS: PCP Physician Assistant; Visit Provider Internal Medicine
DX: R73.9 Hyperglycemia, unspecified (principal)
CPT/HCPCS: 36415; 83036

== ENCOUNTER 2022-04-10 11:23 | Outpatient (REF) | payer BC, SELFPAY ==
[2022-04-10 12:06] LABS: Binax Internal Control QC Valid; Binax Now Covid-19 Ag Negative (Negative)
== END 2022-04-10 11:24 | disposition home or self-care (01) ==
LOC: HO.HMGCLDS 11:23
PROVIDERS: PCP Physician Assistant; Visit Provider Internal Medicine
DX: Z20.822 Contact with and (suspected) exposure to COVID-19 (principal); J06.9 Acute upper respiratory infection, unspecified
CPT/HCPCS: 87811; C9803

== ENCOUNTER 2023-04-25 09:21 | Outpatient (AMB) | payer BC, SELFPAY ==
[2023-04-25 09:28] VITALS: BP 90/68; PULSE 70; O2SAT 95
--- NOTE | 2023-04-25 09:28 | A.OFFPC_ITS ---
Vital Signs 04/25/23 09:28 Height 5 ft 2 in BMI Reason not done Patient refused/unable BP 90/68 Blood Pressure Location Lt brachial Position Sitting Pulse 70 Pulse Source Pulse Oximeter Pulse Oximetry (%) 95 Oxygen Delivery Method Room Air Intake Visit Reasons: Med review Stonehand Required: No Accompanied by: Self / Same As Patient Allergies shellfish derived [SHELLFISH DERIVED] Allergy (Severe, Verified 04/25/23 10:12) ANAPHYLAXIS cyclobenzaprine [From FLEXERIL] Allergy (Intermediate, Verified 04/25/23 10:12) LETHARGY bupropion [From Wellbutrin] Allergy (Mild, Verified 04/25/23 10:12) HIVES amoxicillin [Augmentin] Allergy (Unknown, Verified 04/25/23 10:12) unknown clavulanic acid [Augmentin] Allergy (Unknown, Verified 04/25/23 10:12) unknown quetiapine [Seroquel] Allergy (Unknown, Verified 04/25/23 10:12) hypoglycemia erythromycin base [Erythromycin Base] Adverse Reaction (Mild, Verified 04/25/23 10:12) VOMITING pantoprazole [From Protonix] Adverse Reaction (Mild, Verified 04/25/23 10:12) TIGHTING OF MUSCLES Medication List - Last Reconciled 04/25/23 by Joni Sullivan PA-C albuterol sulfate 90 mcg/actuation 2 puffs inhalation Q6H PRN 30 days aspirin (Adult Aspirin Regimen) 81 mg PO DAILY diltiazem HCl ER (DILT-XR) 240 mg PO DAILY ibuprofen 600 mg PO TID PRN lorazepam 1 mg PO DAILY PRN 30 days metoprolol tartrate 150 mg PO BID quetiapine 100 mg PO BEDTIME umeclidinium-vilanterol 62.5-25 mcg/actuation (Anoro Ellipta) 1 ea inhalation DAILY Tobacco use date assessed: 04/25/23 Fall risk assessment: 1 Fall in past year Last assessed Fall Risk: 04/25/23 Dental Screening Dental Screen Date: 04/25/23 Did you have a dental visit in the last 12 months?: No Did you have a dental problem in the last 6 months where you did not have access to dental care?: No Was dental information given to patient?: Patient has dentist HPI Med review HPI Details Patient is a 68-year-old female here today for follow-up visit ?Patient has a past medical history significant for COPD, obese,? hyperlipidemia, hypertension.? Tachycardia: Is been followed by Cardiology and continues on cardiac meds including beta aiden and diltiazem. ??She has underwent a cardiac CT was showing minimal stenosis and coronary arteries, also underwent echocardiogram with a centrally normal findings EF of 60 65%.. .. Anxiety/major depressive disorder: She continues on nearly daily use of loraze vanessa for anxiety. She did try Zoloft old filled was ineffective for her. She does report she is suffering with depression in would like medication/treatment for this. .. Tobacco dependency: Unfortunately continues to smoke and does understand she needs to quit. She has found it very difficult to quit. .. COPD:? Patient has done PFTs in the past though was unable to complete the testing due to shortness of breath.? She has establish care with a new chuck boner (Dr. Levi) and will be sent for a repeat PFT. Has been restarted on Chantix for her smoking. Also started on ANORO for the treatment of her COPD. She also reports having moderate to severe shortness of breath on exertion that has been evident over the last several months. . Obesity: Patient does understand her BMI is elevated, she found success losing weight with a weight management some and diet in the past. She is somewhat motivated to do the same again.?? [facility] Medical History Left otitis externa Surgical History History of surgery History of left knee surgery History of nasal surgery History of total abdominal hysterectomy and bilateral salpingo-oophorectomy History of appendectomy Family History Father Heart disease Mother Diabetes Daughter No problems noted. Son No problems noted. Social History Housing: House Alcohol intake: current Alcohol intake frequency: 0-2 drinks per day Patient Tobacco Use Status: Current everyday Tobacco user Tobacco use type: Cigarette Cigarette Packs Per Day: 1 Cigarettes Per Day: 10 e-Cigarette/Vaping Use: Never Used Second Hand Smoke Exposure: No service: No Current occupational status: retired Current occupation: OFFICE ASSISTENT Cognitive needs: No Hearing needs: No Vision needs: Yes Questionnaire PHQ-9 Over the last 2 weeks, how often have you been bothered by any of the following problems? 1. Little interest or pleasure in doing things: nearly every day 2. Feeling down, depressed, or hopeless: several days 3. Trouble falling or staying asleep, or sleeping too much: more than half the days 4. Feeling tired or having little energy: nearly every day 5. Poor appetite or overeating: more than half the days 6. Feeling bad about yourself - or that you are a failure or have let yourself or your family down: more than half the days 7. Trouble concentrating on things, such as reading the newspaper or watching television: not at all 8. Moving or speaking so slowly that other people could have noticed. Or the opposite - being so fidgety or restless that you have been moving around a lot more than usual: several days 9. Thoughts that you would be better off or of hurting yourself in some way: several days Total score: 15 33113 - PHQ-9 Billing: Yes Source: Developed by Drs. Jovanni Tran, Uzma Kruse, Josse Leon and colleagues, with an educational asaf from [employer]. Thrive Questionnaire Date Thrive assessed: 04/25/23 I am a: Patient What is your living situation today?: I have a steady place to live Within the past 12 months, did the food you bought not last and you didn't have the money to get more?: Never true Within the past 12 months, did you worry whether your food would run out before you got money to buy more?: Never true Do you have trouble paying for medicines?: No Do you have trouble getting transportation to medical appointments?: No Do you have trouble paying your heating and electricity bill?: No Do you have trouble taking care of your child, family member or friend?: No Do you have trouble with day-to-day activities such as bathing, preparing meals, shopping, managing finances, etc.?: No Are you currently unemployed and looking for a job?: No Are you interested in more education?: No Please select the resources that you would like help with: None Currently or been in a relationship where the following occur: no concerns reported AUDIT C Alcohol Use Questionnaire (AUDIT-C) 1. How often do you have a drink containing alcohol?: Monthly or less 2. How many drinks containing alcohol do you have on a typical day when you are drinking?: 1 or 2 3. How often do you have six or more drinks on one occasion?: Never Total Score: 1 DELMIS-7 AMB Questionnaire DELMIS-7 Date DELMIS - 7 assessed: 04/25/23 Feeling nervous, anxious, or on edge: 2 = More than half the days Not being able to stop or control worryin = Several days Worrying too much about different things: 1 = Several days Trouble relaxin = Nearly every day Being so restless that it is hard to sit still: 1 = Several days Becoming easily annoyed or irritable: 1 = Several days Feeling afraid as if something awful might happen: 2 = More than half the days Total DELMIS-7 score (0-4 normal; 5-9 mild; 10-14 moderate; 15-21 severe): 11 Source: Developed by Drs. Jovanni Tran, Uzma Kruse, Josse Leon and colleagues, with an educational asaf from [employer]. DELMIS-7 Assessment Billing DELMIS-7 Assessment Tool: DELMIS-7 Assessment 04474 Review of Systems Const Denies headache(s) Eyes Denies loss of vision ENT Denies vertigo, Denies dizziness, Denies headache(s) and Denies sore throat Card Denies chest pain, Denies leg edema and Denies lightheadedness Resp Denies cough, Denies hemoptysis and Denies wheezing GI Denies abdominal pain, Denies melena, Denies constipation, Denies diarrhea and Denies vomiting Denies urinary frequency, Denies dysuria and Denies urinary urgency Musc Denies arthralgias, Denies joint swelling, Denies numbness and Denies tingling Neuro Denies Abnormal speech present, Denies behavioral changes, Denies vertigo, Denies dizziness, Denies headache(s), Denies loss of vision, Denies memory loss, Denies numbness and Denies tingling Psych Denies anxiety, Denies behavioral changes, Denies depression, Denies memory loss and Denies panic attacks Justin/Lymph Denies easy bleeding and Denies easy bruising Aller/Immun Denies wheezing Physical exam (Primary Care) Vital Signs: Last Vital Signs Pulse 70 04/25/23 09:28 BP 90/68 04/25/23 09:28 Pulse Ox 95 04/25/23 09:28 Oxygen Delivery Method Room Air 04/25/23 09:28 BMI Assessment/Plan discussion: High Tobacco/Smoking Status: Tobacco use Status Tobacco use date assessed 04/25/23 04/25/23 09:29 Patient Tobacco Use Status Current everyday Tobacco 04/25/23 09:29 Tobacco use type Cigarette 04/25/23 09:29 e-Cigarette/Vaping Use Never Used 04/25/23 09:29 Are you ready to quit: No Tobacco cessation counseling provided: Yes Items discussed: Nicotine replacement Relapse Prevention: discussed the importance of a supportive environment, discussed negative mood or depression after quitting, weight gain after smoking is common and discussed dietary, exercise and/or lifestyle changes Number of minutes spent counselin CPT code: 79124 - 4-10 Minutes PHQ-9: PHQ-9 Score PHQ-9: Total score 15 04/25/23 11:36 Thrive Assessment: Date of Thrive Assessment Date Thrive assessed 04/25/23 04/25/23 10:11 Currently or been in a relationship where the following occur: no concerns reported Const Other: OBESE General: healthy appearing, no acute distress, alert and awake Nutritional Appearance: well nourished Orientation/consciousness: oriented to person, oriented to place and oriented to time HENMT Ears: TM's normal bilaterally General nose exam: Normal nasal mucous membranes and turbinates present Eyes Conjunctivae: conjunctivae normal Sclerae: sclerae normal Pupils: Equal, round and reactive pupils present Neck Neck: Yes no lymphadenopathy and Yes no JVD Thyroid: Thyroid normal Carotids: no bruits Resp Effort & Inspection: normal respiratory effort and not tachypneic Auscultation: no crackles, no rales, no rhonchi and no wheezes Cardio Rate: regular rate Rhythm: regular rhythm Heart sounds: no murmurs and normal S1 and S2 GI Palpation (GI): Soft to palpation, nontender, no hepatomegaly and no splenomegaly Auscultation: normal bowel sounds Skin General skin exam: no rashes or lesions noted and dry skin Neuro General: oriented to person, oriented to place and oriented to time Cranial nerves: Yes Equal, round and reactive pupils present Speech: No Abnormal speech present Gait exam (Neuro): Normal gait present Motor exam (neuro): no tremor noted Extrem Right upper extremity: full ROM Left upper extremity: full ROM Right lower extremity: full ROM; no edema Left lower extremity: full ROM; no edema Psych Mental Status: mental status grossly normal Speech and movement: Normal speech and movement present Affect: normal affect Attitude: cooperative Thought process: Normal thought process present Office Procedures Flu Questionnaire Does the patient have a severe egg allergy?: No Does the patient have severe life threatening allergies?: No Does the patient have a fever or illness today?: No Has the patient ever had Guillain-Winnie Syndrome?: No Has the patient ever had any past reaction to a flu shot?: No Results AMB Hemoglobin A1c AMB Hemoglobin A1c 6.6 % Last Edit by ELIN Lema on 04/25/23 10:35 Immunizations flu vacc [id number] 6mos up(PF) 60 mcg(15 mcgx4)/0.5 mL IM syringe Performing Provider: Joni Sullivan PA-C [facility] Administered by: ELIN Lema on 04/25/23 10:34 Dose Route Admin Location Dispensed Lot Number Expiration Date NDC Mds Coordinator 0.5 mL IM Right Deltoid 0.5 mL [id number] 12/08/23 31180-830-76 [employer] VIS Given Date VIS Provided VIS Publication Date 04/25/23 Single Vaccine 21 Eligibility Eligibility Date Funding Source Not [facility] Eligible 04/25/23 Private Results Reviewed Results Reviewed: Laboratory Last Values Hgb A1c (Clinic) 6.6 % (4.0-6.0) H 04/25/23 10:34 Assessment and Plan Assessment & Plan (1) DMII (diabetes mellitus, type 2): Code(s): E11.9 - Type 2 diabetes mellitus without complications Qualifiers: Diabetes mellitus complication status: with hyperglycemia Diabetes mellitus intermediate manager insulin use: without prison use Qualified Code(s): E11.65 - Type 2 diabetes mellitus with hyperglycemia Plan: Today's A1c at 6.6. She does understand she is not diabetic. She is interested in starting Ozempic to help her with her blood sugars and added benefit of weight loss. Goal A1c is to be below 6.5 (2) COPD (chronic obstructive pulmonary disease): Code(s): J44.9 - Chronic obstructive pulmonary disease, unspecified Qualifiers: COPD type: chronic bronchitis Chronic bronchitis type: simple Qualified Code(s): J41.0 - Simple chronic bronchitis Plan: Patient has establish care with a new chuck boner through [facility] (Dr. Levi) she has been started on oral vanc given Chantix to help her quit smoking. She continues to have shortness of breath on exertion likely related to her body habitus and continued COPD. (3) HLD (hyperlipidemia): Code(s): E78.5 - Hyperlipidemia, unspecified Qualifiers: Hyperlipidemia type: mixed hyperlipidemia Qualified Code(s): E78.2 - Mixed hyperlipidemia Plan: Patient continues on statin therapy without side effect. Goal LDL to be below 100 (4) Tachycardia: Code(s): R00.0 - Tachycardia, unspecified Plan: As per HPI patient followed by academic support director and has had extensive workup including cardiac CT and echocardiogram . She continues on diltiazem and metoprolol for her elevated heart rates which seems to be effective for her. (5) Obese: Code(s): E66.9 - Obesity, unspecified Qualifiers: Body mass index: BMI 35.0-35.9 Obesity classification: adult class 2 (BMI 35 - 39.9) Obesity type: due to excess calories Serious obesity comorbidity presence: with serious comorbidity Qualified Code(s): E66.01 - Morbid (severe) obesity due to excess calories; Z68.35 - Body mass index [BMI] 35.0-35.9, adult Plan: Patient does understand her BMI is in obese category and will work on being more physically active and adapting to better eating habits to reduce her weight. (6) Smoker: Code(s): F17.200 - Nicotine dependence, unspecified, uncomplicated Plan: Patient does understand she needs to quit smoking , she has tried Chantix though seems to not been effective for her. She is not interested in quitting smoking at this time. Orders: Orders Influenza [id number] Immunization 04/25/23 Z23 - Encounter for immunization Comprehensive [place]. Panel Fast Today E11.65 - Type 2 diabetes mellitus with hyperglycemia Lipid Panel Today E78.2 - Mixed hyperlipidemia AMB Hemoglobin A1c 04/25/23 E11.9 - Type 2 diabetes mellitus without complications Microalbumin, Random (w Creat) Today E11.65 - Type 2 diabetes mellitus with hyperglycemia Medications: New venlafaxine ER (Effexor XR) 37.5 mg PO DAILY 30 caps 3RF 30 days F33.1 - Major depressive disorder, recurrent, moderate daridorexant (Quviviq) 25 mg PO BEDTIME 30 tabs 1RF 30 days F51.01 - Primary insomnia semaglutide (Ozempic) for 4 weeks 0.25 mg (0.368 mL) subcut QWEEK 3 mL 0RF 4 weeks E11.65 - Type 2 diabetes mellitus with hyperglycemia Refilled lorazepam 1 mg PO DAILY PRN 30 tabs 3RF anxiety 30 days F41.1 - Generalized anxiety disorder ibuprofen 600 mg PO TID PRN 45 tabs 0RF for pain Coding Level of Care Code Est Pt Level 4 (88257) Diagnoses Type 2 diabetes mellitus with hyperglycemia, without long-term current use of insulin E11.65 Diabetes mellitus complication status: with hyperglycemia Diabetes mellitus intermediate manager insulin use: without prison use Simple chronic bronchitis J41.0 COPD type: chronic bronchitis Chronic bronchitis type: simple Mixed hyperlipidemia E78.2 Hyperlipidemia type: mixed hyperlipidemia Tachycardia R00.0 Class 2 severe obesity due to excess calories with serious comorbidity and body mass index (BMI) of 35.0 to 35.9 in adult E66.01; Z68.35 Body mass index: BMI 35.0-35.9 Obesity classification: adult class 2 (BMI 35 - 39.9) Obesity type: due to excess calories Serious obesity comorbidity presence: with serious comorbidity Smoker F17.200 Additional Codes DELMIS-7 Assessment Billing - DELMIS-7 Assessment Tool: DELMIS-7 Assessment 69475 ([id number]) Vital Signs *Quality* - CPT code: 40902 - 4-10 Minutes ([id number])
== END 2023-04-25 10:36 | disposition home or self-care (01) ==
PROVIDERS: PCP Physician Assistant; Visit Provider Physician Assistant
DX: Z23 Encounter for immunization (principal); E11.9 Type 2 diabetes mellitus without complications
CPT/HCPCS: 83036; 90471; 90686; 99214; 99406

== ENCOUNTER 2024-01-02 10:03 | Outpatient (AMB) | payer BC, SELFPAY ==
[2024-01-02 10:21] VITALS: BP 84/62; PULSE 79; O2SAT 97; BMI 38.1
--- NOTE | 2024-01-02 10:21 | A.OFFPC_ITS ---
Vital Signs 01/02/24 10:21 01/02/24 11:01 Height 5 ft Weight 195 lb BMI 38.1 BP 84/62 L 100/78 Blood Pressure Location Lt brachial Position Sitting Pulse 79 Pulse Source Pulse Oximeter Pulse Oximetry (%) 97 Oxygen Delivery Method Room Air Intake Visit Reasons: Medication follow up Circulation Tender Required: No Accompanied by: Self / Same As Patient Allergies shellfish derived [SHELLFISH DERIVED] Allergy (Severe, Verified 01/02/24 10:50) ANAPHYLAXIS cyclobenzaprine [From FLEXERIL] Allergy (Intermediate, Verified 01/02/24 10:50) LETHARGY bupropion [From Wellbutrin] Allergy (Mild, Verified 01/02/24 10:50) HIVES amoxicillin [Augmentin] Allergy (Unknown, Verified 01/02/24 10:50) unknown clavulanic acid [Augmentin] Allergy (Unknown, Verified 01/02/24 10:50) unknown quetiapine [Seroquel] Allergy (Unknown, Verified 01/02/24 10:50) hypoglycemia erythromycin base [Erythromycin Base] Adverse Reaction (Mild, Verified 01/02/24 10:50) VOMITING pantoprazole [From Protonix] Adverse Reaction (Mild, Verified 01/02/24 10:50) TIGHTING OF MUSCLES Medication List - Last Reconciled 01/02/24 by Joni Sullivan PA-C albuterol sulfate 90 mcg/actuation 2 puffs inhalation Q6H PRN 30 days aspirin (Adult Aspirin Regimen) 81 mg PO DAILY daridorexant (Quviviq) 25 mg PO BEDTIME 30 days diltiazem HCl ER (DILT-XR) 240 mg PO DAILY ibuprofen 600 mg PO TID PRN lorazepam 1 mg PO DAILY PRN 30 days metoprolol tartrate 150 mg PO BID quetiapine 100 mg PO BEDTIME semaglutide (Ozempic) 0.25 mg (0.368 mL) subcut QWEEK 4 weeks venlafaxine ER (Effexor XR) 37.5 mg PO DAILY 30 days Tobacco use date assessed: 01/02/24 Dental Screening Dental Screen Date: 04/25/23 HPI Medication follow up HPI Details Patient is a 68-year-old female here today for follow-up visit ?Patient has a past medical history significant for COPD, obese,? hy perlipidemia, hypertension.? Concern--> reports she has noted weakness in bilateral lower extremities and she is interested in doing physical therapy to help her with her balance and lower extremity strengthening. Tachycardia: Is been followed by Cardiology and continues on cardiac meds including beta aiden and diltiazem. ??She has underwent a cardiac CT was showing minimal stenosis and coronary arteries, also underwent echocardiogram with a centrally normal findings EF of 60 65%.. .. Anxiety/major depressive disorder: She continues on nearly daily use of lorazepam for anxiety. .. Type 2 diabetes: Most recent A1c improved to 5.9 from 6.6. She has been working on dietary modifications. She is interested in starting GLP 1 for both glycemic control and weight loss. .. Tobacco dependency: Unfortunately continues to smoke and does understand she needs to quit. She has found it very difficult to quit. .. COPD:? Patient has done PFTs in the past though was unable to complete the testing due to shortness of breath.? She has establish care with a new travel registered nurse icu (Dr. Levi). . Obesity: Patient does understand her BMI is elevated, she found success losing weight with a weight management some and diet in the past. She is somewhat motivated to do the same again. She is interested in restarting GLP 1 for added benefit weight loss [facility] Medical History Left otitis externa Surgical History History of surgery History of left knee surgery History of nasal surgery History of total abdominal hysterectomy and bilateral salpingo-oophorectomy History of appendectomy Family History Father Heart disease Mother Diabetes Daughter No problems noted. Son No problems noted. Social History Housing: House Alcohol intake: current Alcohol intake frequency: 0-2 drinks per day Patient Tobacco Use Status: Current everyday Tobacco user Tobacco use type: Cigarette Cigarette Packs Per Day: 1 Cigarettes Per Day: 10 e-Cigarette/Vaping Use: Never Used Second Hand Smoke Exposure: No service: No Current occupational status: retired Current occupation: OFFICE ASSISTENT Cognitive needs: No Hearing needs: No Vision needs: Yes Questionnaire PHQ-9 Over the last 2 weeks, how often have you been bothered by any of the following problems? 1. Little interest or pleasure in doing things: not at all 2. Feeling down, depressed, or hopeless: not at all 3. Trouble falling or staying asleep, or sleeping too much: not at all 4. Feeling tired or having little energy: not at all 5. Poor appetite or overeating: not at all 6. Feeling bad about yourself - or that you are a failure or have let yourself or your family down: not at all 7. Trouble concentrating on things, such as reading the newspaper or watching television: not at all 8. Moving or speaking so slowly that other people could have noticed. Or the opposite - being so fidgety or restless that you have been moving around a lot m ore than usual: not at all 9. Thoughts that you would be better off or of hurting yourself in some way: not at all Total score: 0 Depression Screening Interpretation: Negative Depression Screening Done: Yes 08554 - PHQ-9 Billing: Yes Source: Developed by Drs. Jovanni Tran, Uzma Kruse, Josse Leon and colleagues, with an educational asaf from [employer]. Thrive Questionnaire Date Thrive assessed: 01/02/24 I am a: Patient What is your living situation today?: I have a steady place to live Within the past 12 months, did the food you bought not last and you didn't have the money to get more?: Never true Within the past 12 months, did you worry whether your food would run out before you got money to buy more?: Never true Do you have trouble paying for medicines?: No Do you have trouble getting transportation to medical appointments?: No Do you have trouble paying your heating and electricity bill?: No Do you have trouble taking care of your child, family member or friend?: No Do you have trouble with day-to-day activities such as bathing, preparing meals, shopping, managing finances, etc.?: No Are you currently unemployed and looking for a job?: No Are you interested in more education?: No Please select the resources that you would like help with: None Currently or been in a relationship where the following occur: No concerns reported THRIVE Score: 0 AUDIT C Alcohol Use Questionnaire (AUDIT-C) 1. How often do you have a drink containing alcohol?: Never 3. How often do you have six or more drinks on one occasion?: Never Total Score: 0 DELMIS-7 AMB Questionnaire DELMIS-7 Date DELMIS - 7 assessed: 01/02/24 Feeling nervous, anxious, or on edge: 0 = Not at all Not being able to stop or control worryin = Not at all Worrying too much about different things: 0 = Not at all Trouble relaxin = Not at all Being so restless that it is hard to sit still: 0 = Not at all Becoming easily annoyed or irritable: 0 = Not at all Feeling afraid as if something awful might happen: 0 = Not at all Total DELMIS-7 score (0-4 normal; 5-9 mild; 10-14 moderate; 15-21 severe): 0 Source: Developed by Drs. Jovanni Tran, Uzma Kruse, Josse Leon and colleagues, with an educational asaf from [employer]. DELMIS-7 Assessment Billing DELMIS-7 Assessment Tool: DELMIS-7 Assessment 10091 Review of Systems Const Denies headache(s) Eyes Denies loss of vision ENT Denies vertigo, Denies dizziness, Denies headache(s) and Denies sore throat Card Denies chest pain, Denies leg edema and Denies lightheadedness Resp Denies cough, Denies hemoptysis and Denies wheezing GI Denies abdominal pain, Denies melena, Denies constipation, Denies diarrhea and Denies vomiting Denies urinary frequency, Denies dysuria and Denies urinary urgency Musc Denies arthralgias, Denies joint swelling, Denies numbness and Denies tingling Neuro Denies Abnormal speech present, Denies behavioral changes, Denies vertigo, Denies dizziness, Denies headache(s), Denies loss of vision, Denies memory loss, Denies numbness and Denies tingling Psych Denies anxiety, Denies behavioral changes, Denies depression, Denies memory loss and Denies panic attacks Justin/Lymph Denies easy bleeding and Denies easy bruising Aller/Immun Denies wheezing Physical exam (Primary Care) Vital Signs: Last Vital Signs Pulse 79 01/02/24 10:21 BP 100/78 01/02/24 11:01 Pulse Ox 97 01/02/24 10:21 Oxygen Delivery Method Room Air 01/02/24 10:21 BMI result Body Mass Index 38.1 Tobacco/Smoking Status: Tobacco use Status Tobacco use date assessed 01/02/24 01/02/24 10:31 Patient Tobacco Use Status Current everyday Tobacco 01/02/24 10:31 Tobacco use type Cigarette 01/02/24 10:31 e-Cigarette/Vaping Use Never Used 01/02/24 10:31 Are you ready to quit: No Tobacco cessation counseling provided: Yes Items discussed: Nicotine replacement and QuitWorks Relapse Prevention: discussed the importance of a supportive environment, discussed negative mood or depression after quitting, weight gain after smoking is common and discussed dietary, exercise and/or lifestyle changes Number of minutes spent counselin CPT code: 41524 - 4-10 Minutes PHQ-9: PHQ-9 Score PHQ-9: Total score 0 01/02/24 10:54 Depression Screening Interpretation: Negative Thrive Assessment: Date of Thrive Assessment Date Thrive assessed 01/02/24 01/02/24 10:31 Currently or been in a relationship where the following occur: No concerns reported Const General: healthy appearing, no acute distress, alert and awake Nutritional Appearance: well nourished Orientation/consciousness: oriented to person, oriented to place and oriented to time HENMT Ears: TM's normal bilaterally General nose exam: Normal nasal mucous membranes and turbinates present Eyes Conjunctivae: conjunctivae normal Sclerae: sclerae normal Pupils: Equal, round and reactive pupils present Neck Neck: Yes no lymphadenopathy and Yes no JVD Thyroid: Thyroid normal Carotids: no bruits Resp Effort & Inspection: normal respiratory effort and not tachypneic Auscultation: no crackles, no rales, no rhonchi and no wheezes Cardio Rate: regular rate Rhythm: regular rhythm Heart sounds: no murmurs and normal S1 and S2 GI Palpation (GI): Soft to palpation, nontender, no hepatomegaly and no splenomegaly Auscultation: normal bowel sounds Skin General skin exam: no rashes or lesions noted and dry skin Neuro General: oriented to person, oriented to place and oriented to time Cranial nerves: Yes Equal, round and reactive pupils present Speech: No Abnormal speech present Gait exam (Neuro): Normal gait present Motor exam (neuro): no tremor noted Extrem Right upper extremity: full ROM Left upper extremity: full ROM Right lower extremity: full ROM; no edema Left lower extremity: full ROM; no edema Psych Mental Status: mental status grossly normal Speech and movement: Normal speech and movement present Affect: normal affect Attitude: cooperative Thought process: Normal thought process present Results AMB Hemoglobin A1c AMB Hemoglobin A1c 5.9 % Last Edit by ELIN Lema on 01/02/24 10:33 Results Reviewed Results Reviewed: Laboratory Last Values Hgb A1c (Clinic) 5.9 % (4.0-6.0) 01/02/24 10:33 Assessment and Plan Assessment & Plan (1) DMII (diabetes mellitus, type 2): Code(s): E11.9 - Type 2 diabetes mellitus without complications Qualifiers: Diabetes mellitus complication status: with hyperglycemia Diabetes mellitus assistant terminal manager insulin use: without assistant terminal manager use Qualified Code(s): E11.65 - Type 2 diabetes mellitus with hyperglycemia Plan: Today's A1c at 5.9. She is interested in restarting Ozempic to help her with her blood sugars and added benefit of weight loss. Goal A1c is to be below 6.5 (2) COPD (chronic obstructive pulmonary disease): Code(s): J44.9 - Chronic obstructive pulmonary disease, unspecified Qualifiers: COPD type: chronic bronchitis Chronic bronchitis type: simple Qualified Code(s): J41.0 - Simple chronic bronchitis Plan: Patient has establish care with a new travel registered nurse icu through [facility] (Dr. Levi) she has been started on oral vanc given Chantix to help her quit smoking. (3) HLD (hyperlipidemia): Code(s): E78.5 - Hyperlipidemia, unspecified Qualifiers: Hyperlipidemia type: mixed hyperlipidemia Qualified Code(s): E78.2 - Mixed hyperlipidemia Plan: Patient continues on statin therapy without side effect. Goal LDL to be below 100 (4) Tachycardia: Code(s): R00.0 - Tachycardia, unspecified Plan: As per HPI patient followed by driller's assistant and has had extensive workup including cardiac CT and echocardiogram . She continues on diltiazem and metoprolol for her elevated heart rates which seems to be effective for her. (5) Obese: Code(s): E66.9 - Obesity, unspecified Qualifiers: Body mass index: BMI 35.0-35.9 Obesity classification: adult class 2 (BMI 35 - 39.9) Obesity type: due to excess calories Serious obesity comorbidity presence: with serious comorbidity Qualified Code(s): E66.01 - Morbid (severe) obesity due to excess calories; Z68.35 - Body mass index [BMI] 35.0-35.9, adult Plan: Patient does understand her BMI is in obese category and will work on being more physically active and adapting to better eating habits to reduce her weight. (6) Smoker: Code(s): F17.200 - Nicotine dependence, unspecified, uncomplicated Plan: Patient does understand she needs to quit smoking , she has tried Chantix though seems to not been effective for her. She is not interested in quitting smoking at this time. (7) Lower extremity weakness: Code(s): R29.898 - Other symptoms and signs involving the musculoskeletal system Qualifiers: Laterality: bilateral Qualified Code(s): R29.898 - Other symptoms and signs involving the musculoskeletal system Plan: as per [facility] Orders: Orders AMB Hemoglobin A1c Today E11.65 - Type 2 diabetes mellitus with hyperglycemia PT Evaluation and Treatment Today R29.898 - Other symptoms and signs involving the musculoskeletal system Medications: New semaglutide (Ozempic) 0.5 mg (0.736 mL) subcut QWEEK 4 weeks 3 mL 3RF E11.65 - Type 2 diabetes mellitus with hyperglycemia Changed From quetiapine 100 mg PO BEDTIME 30 tabs 6RF G47.00 - Insomnia, unspecified To quetiapine 100 mg PO BEDTIME 90 days 90 tabs 2RF G47.00 - Insomnia, unspecified Refilled ibuprofen 600 mg PO TID PRN 45 tabs 1RF for pain lorazepam 1 mg PO DAILY 30 days PRN 30 tabs 1RF anxiety F41.1 - Generalized anxiety disorder albuterol sulfate 90 mcg/actuation 2 puffs inhalation Q6H 30 days PRN 8.5 grams 3RF shortness of breath or wheezing R06.02 - Shortness of breath, Z87.891 - Personal history of nicotine dependence Discontinued venlafaxine ER (Effexor XR) Discontinued Reason: Duplicate 37.5 mg PO DAILY 30 days 30 caps 3RF F33.1 - Major depressive disorder, recurrent, moderate semaglutide (Ozempic) for 4 weeks Discontinued Reason: Doctor's Order 0.25 mg (0.368 mL) subcut QWEEK 4 weeks 3 mL 0RF E11.65 - Type 2 diabetes mellitus with hyperglycemia Coding Level of Care Code Est Pt Level 4 (26839) Diagnoses Type 2 diabetes mellitus with hyperglycemia, without long-term current use of insulin E11.65 Diabetes mellitus complication status: with hyperglycemia Diabetes mellitus assistant terminal manager insulin use: without assistant terminal manager use Simple chronic bronchitis J41.0 COPD type: chronic bronchitis Chronic bronchitis type: simple Mixed hyperlipidemia E78.2 Hyperlipidemia type: mixed hyperlipidemia Tachycardia R00.0 Class 2 severe obesity due to excess calories with serious comorbidity and body mass index (BMI) of 35.0 to 35.9 in adult E66.01; Z68.35 Body mass index: BMI 35.0-35.9 Obesity classification: adult class 2 (BMI 35 - 39.9) Obesity type: due to excess calories Serious obesity comorbidity presence: with serious comorbidity Smoker F17.200 Weakness of both lower extremities R29.898 Laterality: bilateral Additional Codes DELMIS-7 Assessment Billing - DELMIS-7 Assessment Tool: DELMIS-7 Assessment 75543 ([id number]) Vital Signs *Quality* - CPT code: 10425 - 4-10 Minutes ([id number])
[2024-01-02 11:01] VITALS: BP 100/78
== END 2024-01-02 11:07 | disposition home or self-care (01) ==
PROVIDERS: PCP Physician Assistant; Visit Provider Physician Assistant
DX: E11.65 Type 2 diabetes mellitus with hyperglycemia (principal); J41.0 Simple chronic bronchitis; E66.01 Morbid (severe) obesity due to excess calories; Z68.35 Body mass index [BMI] 35.0-35.9, adult; E78.2 Mixed hyperlipidemia; R00.0 Tachycardia, unspecified; F17.210 Nicotine dependence, cigarettes, uncomplicated; R29.898 Other symptoms and signs involving the musculoskeletal system
CPT/HCPCS: 83036; 99214

== ENCOUNTER 2025-03-16 14:31 | Outpatient (AMB) | payer MEDICARE, SELFPAY ==
--- NOTE | 2025-03-16 14:42 | A.OFFPC_ITS ---
Vital Signs 03/16/25 14:44 Height 5 ft Weight 207 lb 2 oz BMI 40.4 BP 110/60 Blood Pressure Location Lt brachial Position Sitting Pulse 75 Pulse Source Pulse Oximeter Temp 97.3 F Temp Source Temporal Artery Scan Pulse Oximetry (%) 98 Oxygen Delivery Method Room Air Intake Visit Reasons: med follow review Intake Note: Patient is here to follow up on Med review. Publishing Manager Required: No Dependency Program Director: Present Accompanied by: Daughter Allergies shellfish derived (SHELLFISH DERIVED) Allergy (Severe, Verified 03/16/25 14:53) ANAPHYLAXIS cyclobenzaprine (From FLEXERIL) Allergy (Intermediate, Verified 03/16/25 14:53) LETHARGY bupropion (From Wellbutrin) Allergy (Mild, Verified 03/16/25 14:53) HIVES amoxicillin (Augmentin) Allergy (Unknown, Verified 03/16/25 14:53) unknown clavulanic acid (Augmentin) Allergy (Unknown, Verified 03/16/25 14:53) unknown quetiapine (Seroquel) Allergy (Unknown, Verified 03/16/25 14:53) hypoglycemia erythromycin base (Erythromycin Base) Adverse Reaction (Mild, Verified 03/16/25 14:53) VOMITING pantoprazole (From Protonix) Adverse Reaction (Mild, Verified 03/16/25 14:53) TIGHTING OF MUSCLES Medication List - Last Reconciled 03/16/25 by Joni Sullivan PA-C albuterol sulfate 90 mcg/actuation 2 puffs inhalation Q6H PRN 30 days aspirin (Adult Aspirin Regimen) 81 mg PO DAILY daridorexant (Quviviq) 25 mg PO BEDTIME 30 days diltiazem HCl ER (DILT-XR) 240 mg PO DAILY ibuprofen 600 mg PO TID PRN lorazepam 1 mg PO DAILY PRN 7 days metoprolol tartrate 150 mg PO BID paroxetine HCl 20 mg PO DAILY 30 days quetiapine 100 mg PO BEDTIME 90 days Tobacco use date assessed: 03/16/25 Fall risk assessment: 2 + Falls in past year Last assessed Fall Risk: 03/16/25 Dental Screening Dental Screen Date: 03/16/25 Did you have a dental visit in the last 12 months?: No Did you have a dental problem in the last 6 months where you did not have access to dental care?: No Was dental information given to patient?: Patient has dentist HPI med follow review HPI Details Patient is a 69-year-old female here today for follow-up visit ?Patient has a past medical history significant for COPD, obese,? hyperlipidemia, hypertension, wet macular degeneration.? Family concerned about Mi as she seems to have not been taking the best care of herself since her has been last year, there is concerns though she is not taking some of her medications and she is not keeping up with her personal hygiene. Also they are concerned about her fall risk as she has been unstable on her feet to do lower extremity weakness and balance issues. She has also been getting injections in her eyes due to wet macular degeneration and has been having difficulty with her vision. Also having difficulty with her hearing Concern--> She reports experiencing nausea and soft stools after eating, followed by constipation, which has persisted for over a year. The patient has been using Nexium daily, which provides some relief, and there is a consideration of gallbladder issues as a potential cause. .. Tachycardia: Is been followed by Cardiology and continues on cardiac meds including beta aiden and diltiazem. ??She has underwent a cardiac CT was showing minimal stenosis and coronary arteries, also underwent echocardiogram with a centrally normal findings EF of 60 65%.. .. Anxiety/major depressive disorder: She continues on nearly daily use of lorazepam for anxiety. She is asking for more lorazepam though we are trying not to have her take this medication on a daily basis to 2 her age in causing perhaps memory issues. She does report feeling a bit more depressed and lack of energy and attributes this to her poor sleeping issues. She does take Seroquel prior to sleep though sometimes take the medication at 03:00am. Will transitioned from Paxil to Effexor as a alternative depression medication .. Type 2 diabetes: Today's A1c is 6.8. Patient has not been taking really good care of herself. She has been working on dietary modifications. She is interested in starting GLP 1 for both glycemic control and weight loss. ..Tobacco dependency: Unfortunately con tinues to smoke and does understand she needs to quit. She has found it very difficult to quit. .. ..COPD:? Patient has done PFTs in the [facility] though was unable to complete the testing due to shortness of breath.? She has establish care with a new microarray operations vice president (Dr. Levi). .. . Class 3 obesity: She has gained weight since last office visit. Patient does understand her BMI is elevated at 40.5. She is interested in restarting GLP 1 for added benefit weight loss [facility] Medical History Left otitis externa Surgical History History of surgery History of left knee surgery History of nasal surgery History of total abdominal hysterectomy and bilateral salpingo-oophorectomy History of appendectomy Family History Father Heart disease Mother Diabetes Daughter No problems noted. Son No problems noted. Social History Housing: House Alcohol intake: current Alcohol intake frequency: does not drink Patient Tobacco Use Status: Current everyday Tobacco user Tobacco use type: Cigarette Cigarette Packs Per Day: 1 Cigarettes Per Day: 20 e-Cigarette/Vaping Use: Never Used Second Hand Smoke Exposure: Yes service: No Current occupational status: retired Current occupation: OFFICE ASSISTENT Cognitive needs: No Hearing needs: No Vision needs: Yes Questionnaire PHQ-9 Over the last 2 weeks, how often have you been bothered by any of the following problems? 1. Little interest or pleasure in doing things: several days 2. Feeling down, depressed, or hopeless: several days 3. Trouble falling or staying asleep, or sleeping too much: several days 4. Feeling tired or having little energy: several days 5. Poor appetite or overeating: not at all 6. Feeling bad about yourself - or that you are a failure or have let yourself or your family down: not at all 7. Trouble concentrating on things, such as reading the newspaper or watching television: not at all 8. Moving or speaking so slowly that other people could have noticed. Or the opposite - being so fidgety or restless that you have been moving around a lot more than usual: not at all 9. Thoughts that you would be better off or of hurting yourself in some way: not at all Total score: 4 Depression Screening Interpretation: Positive Depression Screening Follow-up: Existing condition and Change in Medication Depression Screening Done: Yes 96994 - PHQ-9 Billing: Yes Source: Developed by Drs. Jovanni Tran, Uzma Kruse, Josse Leon and colleagues, with an educational asaf from [employer]. Thrive Questionnaire Date Thrive assessed: 03/16/25 I am a: Parent/Caregiver What is your living situation today?: I have a place to live, but I am worried about losing it in the future Within the past 12 months, did the food you bought not last and you didn't have the money to get more?: Never true Within the past 12 months, did you worry whether your food would run out before you got money to buy more?: Never true Do you have trouble paying for medicines?: No Do you have trouble getting transportation to medical appointments?: No Do you have trouble paying your heating and electricity bill?: No Do you have trouble taking care of your child, family member or friend?: No Do you have trouble with day-to-day activities such as bathing, preparing meals, shopping, managing finances, etc.?: I choose not to answer this question Are you currently unemployed and looking for a job?: I choose not to answer this question Are you interested in more education?: I choose not to answer this question Please select the resources that you would like help with: None Currently or been in a relationship where the following occur: No concerns reported THRIVE Score: 1 AUDIT C Alcohol Use Questionnaire (AUDIT-C) 1. How often do you have a drink containing alcohol?: Never Total Score: 0 DELMIS-7 AMB Questionnaire DELMIS-7 Date DELMIS - 7 assessed: 03/16/25 Feeling nervous, anxious, or on edge: 0 = Not at all Not being able to stop or control worryin = Not at all Worrying too much about different things: 0 = Not at all Trouble relaxin = Not at all Being so restless that it is hard to sit still: 0 = Not at all Becoming easily annoyed or irritable: 0 = Not at all Feeling afraid as if something awful might happen: 0 = Not at all Total DELMIS-7 score (0-4 normal; 5-9 mild; 10-14 moderate; 15-21 severe): 0 Source: Developed by Uzma McbrideW. Uriah, Josse Leon and colleagues, with an educational asaf from [employer]. DELMIS-7 Assessment Billing DELMIS-7 Assessment Tool: DELMIS-7 Assessment 85256 Review of Systems Const Denies headache(s) Eyes Denies loss of vision ENT Denies vertigo, Denies dizziness, Denies headache(s) and Denies sore throat Card Denies chest pain, Denies leg edema and Denies lightheadedness Resp Denies cough, Denies hemoptysis and Denies wheezing GI Denies abdominal pain, Denies melena, Denies constipation, Denies diarrhea and Denies vomiting Denies urinary frequency, Denies dysuria and Denies urinary urgency Musc Denies arthralgias, Denies joint swelling, Denies numbness and Denies tingling Neuro Denies Abnormal speech present, Denies behavioral changes, Denies vertigo, Denies dizziness, Denies headache(s), Denies loss of vision, Denies memory loss, Denies numbness and Denies tingling Psych Denies anxiety, Denies behavioral changes, Denies depression, Denies memory loss and Denies panic attacks Justin/Lymph Denies easy bleeding and Denies easy bruising Aller/Immun Denies wheezing Physical exam (Primary Care) Vital Signs: Last Vital Signs Temp 97.3 F 03/16/25 14:44 Pulse 75 03/16/25 14:44 BP 110/60 03/16/25 14:44 Pulse Ox 98 03/16/25 14:44 Oxygen Delivery Method Room Air 03/16/25 14:44 BMI result Body Mass Index 40.4 BMI Assessment/Plan discussion: High BMI High, discussed plan: lifestyle, weight reduction, dietary and physical activity Tobacco/Smoking Status: Tobacco use Status Tobacco use date assessed 03/16/25 03/16/25 14:53 Patient Tobacco Use Status Current everyday Tobacco 03/16/25 14:53 Tobacco use type Cigarette 03/16/25 14:53 e-Cigarette/Vaping Use Never Used 03/16/25 14:53 PHQ-9: PHQ-9 Score PHQ-9: Total score 4 03/16/25 15:44 Depression Screening Interpretation: Positive Depression Screening Follow-up: Existing condition and Change in Medication Thrive Assessment: Date of Thrive Assessment Date Thrive assessed 03/16/25 03/16/25 14:53 Currently or been in a relationship where the following occur: No concerns reported Const Other: OBESE General: healthy appearing, no acute distress, alert and awake Nutritional Appearance: well nourished Orientation/consciousness: oriented to person, oriented to place and oriented to time HENMT Ears: TM's normal bilaterally General nose exam: Normal nasal mucous membranes and turbinates present Eyes Conjunctivae: conjunctivae normal Sclerae: sclerae normal Pupils: Equal, round and reactive pupils present Neck Neck: Yes no lymphadenopathy and Yes no JVD Thyroid: Thyroid normal Carotids: no bruits Resp Effort & Inspection: normal respiratory effort and not tachypneic Auscultation: no crackles, no rales, no rhonchi and no wheezes Cardio Rate: regular rate Rhythm: regular rhythm Heart sounds: no murmurs and normal S1 and S2 GI Palpation (GI): Soft to palpation, nontender, no hepatomegaly and no splenomegaly Auscultation: normal bowel sounds Skin General skin exam: no rashes or lesions noted and dry skin Neuro General: oriented to person, oriented to place and oriented to time Cranial nerves: Yes Equal, round and reactive pupils present Speech: No Abnormal speech present Gait exam (Neuro): Normal gait present Motor exam (neuro): no tremor noted Extrem Right upper extremity: full ROM Left upper extremity: full ROM Right lower extremity: full ROM; no edema Left lower extremity: full ROM; no edema Psych Mental Status: mental status grossly normal Speech and movement: Normal speech and movement present Affect: normal affect Attitude: cooperative Thought process: Normal thought process present Office Procedures Flu Questionnaire Does the patient have a severe egg allergy?: No Does the patient have severe life threatening allergies?: No Does the patient have a fever or illness today?: No Has the patient ever had Guillain-Monroe Syndrome?: No Has the patient ever had any past reaction to a flu shot?: No Results AMB Hemoglobin A1c AMB Hemoglobin A1c 6.8 % Last Edit by LINNETTE Sanchez on 03/16/25 15:50 Immunizations Fluarix [id number] (PF) 45 mcg (15 mcg x 3)/0.5 mL IM syringe Performing Provider: Joni Sullivan PA-C Performing Location: [facility] Administered by: LINNETTE Brooks on 03/16/25 15:45 Dose Route Admin Location Dispensed Lot Number Expiration Date NDC Manager Money 0.5 mL IM Right Deltoid 0.5 mL [id number] 12/07/25 [id number] [employer] VIS Given Date VIS Provided VIS Publication Date 03/16/25 Single Vaccine 24 Eligibility Eligibility Date Funding Source Not VF Eligible 03/16/25 Private Results Reviewed Results Reviewed: Laboratory Last Values Hgb A1c (Clinic) 6.8 % (4.0-6.0) H 03/16/25 15:43 Coding Level of Care Code Est Pt Level 4 (40082) Diagnoses Type 2 diabetes mellitus with hyperglycemia, without long-term current use of insulin E11.65 Diabetes mellitus prison insulin use: without prison use Diabetes mellitus complication status: with hyperglycemia Class 3 obesity E66.813 Epigastric pain R10.13 Balance disorder R26.89 Impacted cerumen of both ears H61.23 MDD (major depressive disorder), recurrent episode, moderate F33.1 Additional Codes PHQ-9 - 23414 - PHQ-9 Billing: Yes ([id number]) DELMIS-7 Assessment Billing - DELMIS-7 Assessment Tool: DELMIS-7 Assessment 47681 ([id number]) Assessment & Plan Assessment & Plan (1) DMII (diabetes mellitus, type 2): Code(s): E11.9 - Type 2 diabetes mellitus without complications Category: Medical Qualifiers: Diabetes mellitus intermediate school teacher insulin use: without intermediate school teacher use Diabetes mellitus complication status: with hyperglycemia Qualified Code(s): E11.65 - Type 2 diabetes mellitus with hyperglycemia Plan: Patient's A1c today at 6.8. Will start GLP to help with glycemic control and weight reduction. Goal A1c is to be below 6.5 (2) Class 3 obesity: Code(s): E66.813 - Obesity, class 3 Category: Medical Plan: Patient does understand her BMI is over 40 will work on being more physically active and adapting to better eating habits to reduce her weight. She is interested in starting a GLP 1 to help her with weight reduction and glycemic control as her A1c today at 6.8. (3) Epigastric pain: Code(s): R10.13 - Epigastric pain Category: Medical Plan: The plan includes obtaining an abdominal ultrasound to assess gallbladder function due to the patient's gastrointestinal symptoms. Additionally, a stool test for H. pylori will be conducted to rule out infection as a cause of her symptoms. (4) Balance disorder: Code(s): R26.89 - Other abnormalities of gait and mobility Category: Medical Plan: Patient has weakness in extremities and often is experiencing falls. Will supply patient with an order for physical therapy to help with balance training. (5) Impacted cerumen of both ears: Code(s): H61.23 - Impacted cerumen, bilateral Category: Medical Plan: Patient does have cerumen impaction in both of her ears does tried to lavage though was unsuccessful. She will try home drops to try to remove cerumen (6) MDD (major depressive disorder), recurrent episode, moderate: Code(s): F33.1 - Major depressive disorder, recurrent, moderate Category: Medical Plan: Patient's PHQ-9 score positive for depression which has been existing condition for her. Will transitioned her from SSRI to SNRI therapy to help with both her depression and her energy. Orders: Orders AMB Hemoglobin A1c Today Z13.9 - Encounter for screening, unspecified Lipid Panel Today E11.65 - Type 2 diabetes mellitus with hyperglycemia Comprehensive [place]. Panel Fast Today E11.65 - Type 2 diabetes mellitus with hyperglycemia Complete Blood Count no Diff Today E11.65 - Type 2 diabetes mellitus with hyperglycemia Microalbumin, Random (w Creat) Today E11.65 - Type 2 diabetes mellitus with hyperglycemia US abdomen complete Today R10.13 - Epigastric pain Influenza [id number] Immunization Today Z23 - Encounter for immunization H pylori Ag Stool Today R10.13 - Epigastric pain PT Evaluation and Treatment Today R26.89 - Other abnormalities of gait and mobility Medications: New tirzepatide (Mounjaro) for 4 weeks 2.5 mg (0.5 mL) subcut QWEEK 2 mL 1RF 4 weeks E11.65 - Type 2 diabetes mellitus with hyperglycemia venlafaxine ER (Effexor XR) 37.5 mg PO BEDTIME 30 caps 3RF 30 days F33.1 - Ang or depressive disorder, recurrent, moderate metformin 500 mg PO BID 60 tabs 3RF 30 days E11.65 - Type 2 diabetes mellitus with hyperglycemia Changed From lorazepam 1 mg PO DAILY 7 days PRN 7 tabs 0RF anxiety F41.1 - Generalized anxiety disorder To lorazepam 1 mg PO DAILY PRN 14 tabs 0RF anxiety 14 days F41.1 - Generalized anxiety disorder Discontinued paroxetine HCl Discontinued Reason: Doctor's Order 20 mg PO DAILY 30 days 30 tabs 3RF F33.1 - Major depressive disorder, recurrent, moderate
[2025-03-16 14:44] VITALS: BP 110/60; PULSE 75; TEMP 36.3; O2SAT 98; BMI 40.4
--- OUTSIDE RECORDS SUMMARY | 2025-03-16 17:51 | XMS_ITS | Clinical Summary ---
Author Organization [facility] Address [address] [address] Phone Care Team Providers Care Cloth Cutter Name Role Phone Unknown, Unknown Primary Care Provider Maksim toribio Allergies Active Allergy Reactions Criticality Noted Date Comments Azithromycin 11/28/2018 Pantoprazole 11/28/2018 Bupropion Hcl 11/28/2018 Medications atorvastatin calcium (ATORVASTATIN ORAL) Take by mouth. Active LISINOPRIL ORAL Take by mouth. Active LORazepam (ATIVAN) 1 MG tablet Take 1 mg by mouth every 6 (six) hours as needed for anxiety. Active QUEtiapine (SEROQUEL) 100 MG tablet Take 100 mg by mouth nightly at bedtime. Active esomeprazole magnesium (NEXIUM ORAL) Take by mouth. Active Active Problems No known active problems Social History Tobacco Use Types Packs/Day Years Used Date Smoking Tobacco: Every Day Smokeless Tobacco: Never Alcohol Use Standard Drinks/Week Comments Yes 0 (1 standard drink = 0.6 oz pur e alcohol) once weekly Education Answer Date Recorded Are you interested in more education? Not on bronson e 10/05/2022 Are you concerned about learning? Not on file 10/05/2022 No 10/05/2022 No 10/05/2022 Digital Access Answer Date Recorded No 11/05/2022 No 11/05/2022 No 11/05/2022 Reliable internet access at home? Not on file 11/05/2022 Device with a working camera? Not on file Comments Unknown Sex and Gender Information Value Date Recorded Sex Assigned at Not on file Legal Sex Female 8:15 PM EDT Gender Identity Female 11/28/2018 1:19 PM EDT Sexual Orientation Not on file Last Filed Vital Signs Vital Sign Reading Time Taken Comments Blood Pressure 104/64 01/13/2021 9:26 AM EDT Pulse 124 01/13/2021 9:26 AM EDT Temperature 36.8 C (98.2 F) 01/13/2021 9:26 AM EDT Respiratory Rate 18 01/13/2021 9:26 AM EDT Oxygen Saturation 95% 01/13/2021 9:26 AM EDT Inhaled Oxygen Concentration - - Weight 83.5 kg (184 lb) 01/13/2021 9:26 AM EDT p er pt Height 154.9 cm (5' 1 ) 11/28/2018 1:13 PM EDT Body Mass Index 34.77 11/28/2018 1:13 PM EDT Plan of Treatment Health Maintenance Due Date Last Done Comments LIPID PANEL 1955 DEPRESSION SCREENING 1967 SMOKING Hx and SMOKELESS TOBACCO SCREENING 1968 HEPATITIS C SCREENING 1973 MAMMOGRAM 1995 COLOGUARD 2000 COLONOSCOPY 2000 COLORECTAL CANCER SCREENING 2000 FIT TEST 2000 FOBT 2000 SIGMOIDOSCOPY 2000 VIRTUAL COLONOSCOPY 2000 ZOSTER VACCINES (1 of 2) 2005 CREATININE LEVEL 11/29/2019 11/28/2018 POTASSIUM LEVEL 11/29/2019 11/28/2018 PNEUMOCOCCAL VACCINES (50+ years) (2 of 2 - PCV) 03/09/2020 03/09/2019 OSTEOPOROSIS SCREENING INITIAL (ONE-TIME) 2020 INFLUENZA VACCINE (#1) 2025 9, 2018, 06/19/2017, Additional history exists COVID-19 VACCINE ( - 2024- season) 2025 08/03/2020, 06/30/2020 Adult Td,Tdap Booster 2028 2018, 016 RSV VACCINE (1 - 1-dose 75+ series) 2030 HEPATITIS A VACCINES Aged Out No long er eligible based on patient's age to complete this topic HIB VACCINES Aged Out No longer eligi ble based on patient's age to complete this topic MENINGOCOCCAL VACCINES (ACWY) Aged Out No longer eligible based on patient's age to complete this topic MENINGOCOCCAL VACCINES (B) Aged Out N o longer eligible based on patient's age to complete this topic Medical Devices Not on file Procedures Procedure Name Priority Date/Time Associated Diagnosis Comments BASIC METABOLIC PANEL STAT 11/28/2018 3:13 PM EDT from Last 3 Months or Most Recently Relevant to Health Maintenance Results * (ABNORMAL) Basic metabolic panel (11/28/2018 3:13 PM EDT) SODIUM 136 133 - 146 mmol/L [facility] CHLORIDE 100 96 - 108 mmol/L [facility] POTASSIUM 4.6 3.3 - 5.1 mmol/L [facility] CO2 24 21 - 35 mmol/L [facility] BUN 19 6 - 19 mg/dL [facility] CREATININE 0.70 0.5 - 1.5 mg/dL [facility] GLUCOSE 177(H) 70 - 99 mg/dL [facility] CALCIUM 10.1 8.4 - 10.3 mg/dL [facility] EGFR 92 >59 mL/min/1.7 3m2 [facility] Comment:If patient is black, multiply result by 1.159. Estimated glomerular filtration rate calculated using the CKD-EPI equation. ANION GAP 17 10 - 20 mmol/L [facility] Blood 11/28/2018 3:13 PM EDT 11/28/2018 3:20 PM EDT us Magaly Coreas NP LAB BLOOD ORDERABLES Final Res ult [facility] [address] [place] [address] from Last 3 Months or Most Recently Relevant to Health Maintenance [place] [id number] [facility] PPO EPO MEDICARE A [facility] MEDICARE A [facility]PO [facility]PO [facility] Address: [facility] [id number] [place] [address] MEDICARE A [facility] PPO EPO MEDICARE A [facility] PPO EPO MEDICARE A [facility] PPO EPO MEDICARE A [facility] PPO EPO MEDICARE A [facility] PPO EPO [facility] Address: [facility] [id number] [place] [address] MEDICARE A [facility] PPO EPO MEDICARE A Care Teams Cloth Cutter Relationship Specialty Start Date End Date Unknown, Unknown, PCP - General 11/28/18 Additional Source Comments The information contained in this document represents components of the legal health record. It is not the complete legal health record.[facility]
--- OUTSIDE RECORDS SUMMARY | 2025-03-16 17:51 | XMS_ITS | Patient Health Record ---
Author Organization [facility] Address [address] [place] [id number] Care Team Providers Care Dry Roaster Name Role Phone NONE, NONE Primary Care Provider Jovanni Gupta [phone] Reason For Referral No Information Plan Of Treatment No Information
== END 2025-03-16 16:12 | disposition home or self-care (01) ==
LOC: HO.HMCH 14:31
PROVIDERS: PCP Physician Assistant; Visit Provider Physician Assistant
DX: E11.65 Type 2 diabetes mellitus with hyperglycemia (principal); E66.813 Obesity, class 3; F33.1 Major depressive disorder, recurrent, moderate; Z68.41 Body mass index [BMI] 40.0-44.9, adult; R10.13 Epigastric pain; R26.89 Other abnormalities of gait and mobility; H61.23 Impacted cerumen, bilateral; Z23 Encounter for immunization

== ENCOUNTER → 2025-03-16 14:31 | Outpatient (BNVA) | payer MEDICARE, SELFPAY | PROVIDERS: PCP Physician Assistant; Visit Provider Physician Assistant | DX: I10 Essential (primary) hypertension (principal); J44.9 Chronic obstructive pulmonary disease, unspecified; E78.5 Hyperlipidemia, unspecified; R00.0 Tachycardia, unspecified; F41.9 Anxiety disorder, unspecified; E66.813 Obesity, class 3; F17.210 Nicotine dependence, cigarettes, uncomplicated; E11.65 Type 2 diabetes mellitus with hyperglycemia; R10.13 Epigastric pain; R26.89 Other abnormalities of gait and mobility; H61.23 Impacted cerumen, bilateral; F33.1 Major depressive disorder, recurrent, moderate; Z23 Encounter for immunization; Z68.41 Body mass index [BMI] 40.0-44.9, adult | CPT/HCPCS: 83036; 90471; 90656; 96127; 99212 ==

== ENCOUNTER 2025-03-31 08:36 | Outpatient (REF) | payer MEDICARE, SELFPAY ==
--- OUTSIDE RECORDS SUMMARY | 2025-03-31 09:04 | XMS_ITS | Patient Health Record ---
Author Organization [facility] Address [address] [place] [id number] Care Team Providers Care Carpenter'S Assistant Name Role Phone NONE, NONE Primary Care Provider Jovanni Gupta [phone] Reason For Referral No Information Plan Of Treatment No Information
--- OUTSIDE RECORDS SUMMARY | 2025-03-31 09:04 | XMS_ITS | Clinical Summary ---
Author Organization [facility] Address [address] [address] Phone Care Team Providers Care Safety And Skill Based Pay Manager Name Role Phone Unknown, Unknown Primary Care [...] EDT) SODIUM 136 133 - 146 mmol/L [facility] CHLORIDE 100 96 - 108 mmol/L [facility] POTASSIUM 4.6 3.3 - 5.1 mmol/L [facility] CO2 24 21 - 35 mmol/L [facility] BUN 19 6 - 19 mg/dL [facility] CREATININE 0.70 0.5 - 1.5 mg/dL [facility] GLUCOSE 177(H) 70 - 99 mg/dL [facility] CALCIUM 10.1 8.4 - 10.3 mg/dL [facility] EGFR 92 >59 mL/min/1.7 3m2 [facility] Comment:If patient is black, multiply result by 1.159. Estimated glomerular filtration rate calculated using the CKD-EPI equation. ANION GAP 17 10 - 20 mmol/L [facility] Blood 11/28/2018 3:13 PM EDT 11/28/2018 3:20 PM EDT us Magaly Coreas NP LAB BLOOD ORDERABLES Final Res ult [facility] [address] [place] [address] from Last 3 Months or Most Recently Relevant to Health [place] [address] [facility] PPO EPO MEDICARE A [facility] A [facility] PPO [facility]PO MEDICARE A [facility] PPO [facility]PO MEDICARE A [facility] PPO [facility]PO MEDICARE A [facility] PPO [facility]PO MEDICARE A [facility] PPO [facility]PO MEDICARE A [facility] PPO EPO MEDICARE A [facility] PPO EPO MEDICARE A Care Teams Safety And Skill Based Pay Manager Relationship Specialty Start Date End Date Unknown, Unknown, PCP - General 11/28/18 Additional Source Comments The information contained in this document represents components of the legal health record. It is not the complete legal health record.[facility]
[2025-03-31 09:58] LABS: Hematocrit 46.1 % (37.0-47.0); Hemoglobin 14.7 g/dl (12.0-16.0); Mean Corpuscular HGB Conc 31.9 g/dl (31.0-35.0); Mean Corpuscular Hemoglobin 30.1 pg (27.0-33.0); Mean Corpuscular Volume 94.5 fL (80.0-98.0); NRBC Abs Auto 0.000 X10*3/uL (0.0-0.012); NRBC Pct Auto 0.0 /100WBC (0.0-0.2); Platelet Count 234 X10*3/uL (160-400); Red Blood Count 4.88 X10*6/uL (4.20-5.50); White Blood Count 10.6 X10*3/uL (4.8-10.8)
[2025-03-31 10:22] LABS: Alanine Aminotransferase 30 U/L (0-31); Albumin Level 4.2 g/dL (3.5-5.0); Alkaline Phosphatase 120 U/L (39-117); Anion Gap 12 (12-20); Aspartate Amino Transferase 22 U/L (5-31); Blood Urea Nitrogen 30 mg/dL (9-16); Calcium 9.8 mg/dL (8.4-10.2); Carbon Dioxide 21 mmol/L (22-29); Chloride 111 mmol/L (96-108); Cholesterol 250 mg/dL (<200); Estimated Glomerular Filt Rate > 60; HDL Cholesterol 28 mg/dL (>40); Potassium 4.4 mmol/L (3.3-5.1); Sodium 140 mmol/L (135-145); Total Protein 7.2 g/dL (6.5-8.0); Triglycerides 314 mg/dL (<150)
== END 2025-03-31 08:37 | disposition home or self-care (01) ==
LOC: HO.LAB 08:36
PROVIDERS: PCP Physician Assistant; Visit Provider Physician Assistant
DX: E11.65 Type 2 diabetes mellitus with hyperglycemia (principal)
CPT/HCPCS: 36415; 80053; 80061; 85027